=== PATIENT | male | born 1945 | race American Indian/Alaskan Native ===

== ENCOUNTER 2016-08-14 16:01 | Inpatient (IN) | payer MEDICARE ==
[2016-08-14 23:09] LABS: Anion Gap 15 mmol/L; B-Hydroxybutyrate 0.5 mg/dL (0.2-2.8); BUN/Creatinine Ratio 14.28; Blood Urea Nitrogen 20 mg/dL (9-20); Carbon Dioxide 26 mmol/L (22-30); Chloride 102.2 mmol/L (98-107); Glucose 217 mg/dL (75-100); Potassium 3.8 mmol/L (3.6-5.0); Sodium 139 mmol/L (137-145)
[2016-08-14 23:14] LABS: Basophils % (Auto) 0.7 % (0.0-1.8); Hematocrit 31.7 % (35.5-45.6); Hemoglobin 10.2 gm/dl (11.8-15.2); Mean Corpuscular HGB Conc 32 % (32-34); Mean Corpuscular Hemoglobin 29 pg (28-32); Mean Corpuscular Volume 89 fl (84-94); Platelet Count 134 K/mm3 (140-440); Red Blood Count 3.58 M/mm3 (3.65-5.03); Red Cell Distribution Width 13.1 % (13.2-15.2); White Blood Count 4.1 K/mm3 (4.5-11.0)
[2016-08-15 00:02] LABS: RBC,Urine < 1.0 /HPF (0.0-6.0); WBC,Urine < 1.0 /HPF (0.0-6.0)
[2016-08-15 00:40] LABS: Bilirubin,Urine Negative (Negative); Blood,Urine Trace (Negative); Ketones,Urine Negative (Negative); Leukocyte Esterase,Urine Negative (Negative); Nitrite,Urine Negative (Negative); Protein,Urine <30 mg dL mg/dL (Negative); Urobilinogen,Urine 0.2 mg/dL (<2.0)
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
[2016-08-15] MEDS ORDERED: ZOSYN/NS 3.375GM/50ML 50 ML IV ONE (08:02)
[2016-08-15] MEDS ORDERED: NEURONTIN PO ONE (08:03)
[2016-08-15] MEDS ORDERED: ULTRAM ONE (08:30)
[2016-08-15] MEDS ORDERED: NORVASC PO ONE (08:30)
[2016-08-15] MEDS ORDERED: CATAPRES ONE (08:31)
[2016-08-15] MEDS ORDERED: NORVASC ONE (08:31)
--- NOTE | 2016-08-15 08:46 | XRay Report ---
AP chest History: Hypertension. Findings: Heart size is upper limits of normal. Normal pulmonary vascularity. The lungs are clear. Chronic left pleural thickening is unchanged since 02/29/16. No evidence for infiltrate or pneumothorax. Impression: No acute cardiopulmonary process.
[2016-08-15] MEDS ORDERED: VANCOMYCIN PHARMACY TO DOSE IV SCH (09:00)
[2016-08-15] MEDS ORDERED: ULTRAM PO ONE (09:05)
--- NOTE | 2016-08-15 09:25 | XRay Report ---
RIGHT FOOT, 2 VIEWS: HISTORY: Pain, osteomyelitis. FINDINGS: Compared to the exam dated 06/13/16. There is [id number] diffuse soft tissue edema/swelling. No obvious soft tissue gas. Previous osteolysis of the distal tip of the great toe and most of the fourth toe are noted and not significantly changed. No evidence for fracture, periostitis or bony destruction. Plantar spur is noted. IMPRESSION: Diffuse soft tissue swelling consistent with a cellulitis. No convincing findings of acute osteomyelitis. No appreciable change since 06/13/16.
[2016-08-15] MEDS ORDERED: VANCOMYCIN VIAL 2,000 MG in NACL 0.9% 500 ML 500 ML IV ONE (10:00)
[2016-08-15] MEDS ORDERED: CATAPRES PO ONE (10:07)
[2016-08-15] MEDS ORDERED: TYLENOL PO PRN (11:01)
[2016-08-15] MEDS ORDERED: ZOFRAN IV PRN (11:01)
[2016-08-15] MEDS ORDERED: MILK OF MAGNESIA PO PRN (11:01)
[2016-08-15] MEDS ORDERED: DULCOLAX PR PRN (11:01)
[2016-08-15] MEDS ORDERED: VANCOMYCIN/NS 1 GM/250 ML 250 ML IV ONE (11:06)
--- NOTE | 2016-08-15 11:09 | History and Physical Report ---
History of Present Illness Date of examination: 08/15/16 History of present illness: 70-year-old male with a history of diabetes and hypertension presents to the hospital complaining of right foot infection and drainage. Patient state that his foot has been like this for a couple of days. Patient stated that he initially presented to the emergency room with a blister on his foot but it continued to get worse so he returned. He admits to extreme pain of the right foot drainage. He denies any fever or chills. He also denies any nausea vomiting. Patient has had surgery where he had the second right toe removed in [place]. Past History Past Medical History: diabetes, hypertension Medications and Allergies Allergies Allergy/AdvReac Type Severity Reaction Status Date / Time No Known Allergies Allergy Verified 06/28/16 15:48 Home Medications Medication Instructions Recorded Confirmed Last Taken Type Tramadol HCl [Ultram ER] 100 mg PO QID PRN 06/01/13 08/15/16 1 Day Ago History 100 Travoprost [Travatan Z] 1 drop OP BID 11/05/15 08/15/16 08/14/16 History Insulin Lispro Prot/Lispro 15 - 18 units SC BID #1 bottle 11/11/15 08/15/16 1 Day Ago Rx [HumaLOG Mix 75/25 Vial] 15 Carvedilol [Coreg] 25 mg PO BID #60 tablet 03/04/16 08/15/16 08/14/16 Rx Gabapentin [Neurontin] 300 mg PO QDAY #30 capsule 03/04/16 08/15/16 Unknown Rx Rivaroxaban [Xarelto] 15 mg PO QDAY #30 tablet 03/04/16 08/15/16 08/14/16 Rx Simvastatin [Zocor TAB] 20 mg PO QHS #30 tablet 03/04/16 08/15/16 Unknown Rx Tamsulosin [Flomax] 0.4 mg PO QHS #30 03/04/16 08/15/16 1 Day Ago Rx 0.4 amLODIPine [Norvasc] 5 mg PO DAILY #30 tab 03/04/16 08/15/16 Unknown Rx Active Meds: Active Medications Vancomycin HCl 2,000 mg/ (Sodium Chloride) 500 mls @ 250 mls/hr IV ONCE.ED ONE Stop: 08/15/16 11:59 Vancomycin HCl (Vancomycin Pharmacy To Dose) 1 each IV PKCONSULT MISTI PRN Reason: Protocol Review of Systems Integumentary: redness, foot/leg ulcers Exam - Constitutional Vitals: Temp Pulse Resp BP Pulse Ox 97.8 F 58 L 14 198/88 96 08/15/16 07:00 08/15/16 10:00 08/15/16 10:00 08/15/16 10:00 08/15/16 10:00 General appearance: Present: mild distress - EENT Eyes: Present: PERRL, EOM intact ENT: hearing intact, clear oral mucosa - Neck Neck: Present: supple, normal ROM - Respiratory Respiratory effort: normal Respiratory: bilateral: CTA - Cardiovascular Rhythm: regular Heart Sounds: Present: S1 & S2 - Abdominal General gastrointestinal: Present: soft, non-tender, non-distended, normal bowel sounds - Integumentary Integumentary: Present: erythema - Musculoskeletal Musculoskeletal: strength equal bilaterally, other (right foot with swelling erythema and drainage) - Psychiatric Psychiatric: appropriate mood/affect, intact judgment & insight - Neurologic Neurologic: CNII-XII intact, moves all extremities Results - Labs CBC & Chem 7: 08/14/16 22:37 08/14/16 22:37 Labs: Laboratory Last Values WBC 4.1 K/mm3 (4.5-11.0) L 08/14/16 22:37 RBC 3.58 M/mm3 (3.65-5.03) L 08/14/16 22:37 Hgb 10.2 gm/dl (11.8-15.2) L 08/14/16 22:37 Hct 31.7 % (35.5-45.6) L 08/14/16 22:37 MCV 89 fl (84-94) 08/14/16 22:37 MCH 29 pg (28-32) 08/14/16 22:37 MCHC 32 % (32-34) 08/14/16 22:37 RDW 13.1 % (13.2-15.2) L 08/14/16 22:37 Plt Count 134 K/mm3 (140-440) L 08/14/16 22:37 Lymph % (Auto) 33.2 % (13.4-35.0) 08/14/16 22:37 [place] % (Auto) 11.4 % (0.0-7.3) H 08/14/16 22:37 Eos % (Auto) 2.0 % (0.0-4.3) 08/14/16 22:37 Baso % (Auto) 0.7 % (0.0-1.8) 08/14/16 22:37 Lymph # 1.3 K/mm3 (1.2-5.4) 08/14/16 22:37 [place] # 0.5 K/mm3 (0.0-0.8) 08/14/16 22:37 Eos # 0.1 K/mm3 (0.0-0.4) 08/14/16 22:37 Baso # 0.0 K/mm3 (0.0-0.1) 08/14/16 22:37 Seg Neutrophils % 52.7 % (40.0-70.0) 08/14/16 22:37 Seg Neutrophils # 2.1 K/mm3 (1.8-7.7) 08/14/16 22:37 ESR 23 mm/Hr (0-20) 08/15/16 08:08 VBG pH 7.332 (7.320-7.420) 08/14/16 22:37 Carbon Dioxide 26 mmol/L (22-30) 08/14/16 22:37 BUN 20 mg/dL (9-20) 08/14/16 22:37 Creatinine 1.4 mg/dL (0.8-1.5) 08/14/16 22:37 Estimated GFR > 60 ml/min 08/14/16 22:37 BUN/Creatinine Ratio 14.28 % 08/14/16 22:37 Glucose 217 mg/dL (75-100) H 08/14/16 22:37 POC Glucose 183 (70-105) H 08/15/16 10:36 Lactic Acid 0.9 mmol/L (0.7-2.0) 08/15/16 08:08 Calcium 9.0 mg/dL (8.4-10.2) 08/14/16 22:37 C-Reactive Protein 0.30 mg/dL (0.00-1.30) 08/15/16 08:08 Urine Color Yellow (Yellow) 08/14/16 22:45 Urine Turbidity Clear (Clear) 08/14/16 22:45 Urine pH 6.0 (5.0-7.0) 08/14/16 22:45 Ur Specific [place] 1.025 (1.003-1.030) 08/14/16 22:45 Urine Protein <30 mg dl mg/dL (Negative) 08/14/16 22:45 Urine Glucose (UA) Trace mg/dL (Negative) 08/14/16 22:45 Urine Ketones Negative mg/dL (Negative) 08/14/16 22:45 Urine Blood Trace (Negative) 08/14/16 22:45 Urine Nitrite Negative (Negative) 08/14/16 22:45 Ur Reducing Substances Not Reportable 08/14/16 22:45 Urine Bilirubin Negative (Negative) 08/14/16 22:45 Urine Ictotest Not Reportable 08/14/16 22:45 Urine Urobilinogen 0.2 mg/dL (<2.0) 08/14/16 22:45 Ur Leukocyte Esterase Negative (Negative) 08/14/16 22:45 Urine WBC (Auto) < 1.0 /HPF (0.0-6.0) 08/14/16 22:45 Urine RBC (Auto) < 1.0 /HPF (0.0-6.0) 08/14/16 22:45 U Epithel Cells (Auto) < 1.0 /HPF (0-13.0) 08/14/16:45 Ketones 0.5 mg/dL (0.2-2.8) 08/14/16 22:37 Assessment and Plan - Patient Problems (1) Diabetic infection of right foot Current Visit: No Status: Acute Plan to address problem: Patient presents with diabetic foot ulcer for couple of days. He will be started on IV Zosyn and IV vancomycin. We'll follow blood cultures and wound cultures. We'll also get wound nurse to follow. We'll also get vascular surgery involvement (2) Hypertension Current Visit: No Status: Chronic Qualifiers: Hypertension type: essential hypertension Qualified Code(s): I10 - Essential (primary) hypertension Plan to address problem: We will add clonidine to help control blood pressure.
[2016-08-15] MEDS ORDERED: TRAMADOL HCL 100 MG PO PRN (11:14)
[2016-08-15] MEDS ORDERED: [UNRECOGNIZED DRUG - OTHER] SC SCH (11:15)
[2016-08-15] MEDS ORDERED: INSULIN LISPRO PROTAMINE SC SCH (11:15)
[2016-08-15] MEDS ORDERED: TRAVOPROST OP SCH (11:15)
[2016-08-15] MEDS: ZOSYN/NS 3.375GM/50ML 50 ML IV SCH ×2 (11:46→18:30)
[2016-08-15] MEDS: NORVASC PO SCH (11:46)
[2016-08-15] MEDS: NEURONTIN PO SCH (11:48)
[2016-08-15] MEDS ORDERED: XARELTO PO SCH ×2 (12:00→15:00)
[2016-08-15] MEDS: NOVOLOG SUB-Q SCH ×4 (12:04→22:50)
--- NOTE | 2016-08-15 12:05 | Admit Criteria Form ---
Admission Criteria Documentation: CELLULITIS Clinical Indications for Admission to Inpatient Care (Place 'X' for any and all applicable criteria): Admission is indicated for ANY ONE of the following(1)(2)(3)(4)(5): [X]I. Limb-threatening infection [X]II. High-risk comorbid condition as indicated by ANY ONE of the following: [X]a) Uncontrolled diabetes (eg, HbA1c greater than 10% (0.1)) [ ]b) Cirrhosis [ ]c) Neutropenia [ ]d) Asplenia [ ]e) Immunosuppression [ ]f) Symptomatic heart failure [ ]III. Failure of outpatient therapy as indicated by ALL of the following: [ ]a) Progression or no improvement after adequate trial (minimum of 48 hours, with longer period for stable lower extremity infection) [ ]b) Adequate antibiotic regimen as indicated by use of ANY ONE of the following: [ ]i) First-generation cephalosporin (e.g., cephalexin) [ ]ii) Antistaphylococcal penicillin (e.g., dicloxacillin) [ ]iii) Penicillin-allergic patient regimen (clindamycin, extended-spectrum fluoroquinolone, or doxycycline) [ ]iv) Resistant organism (eg, methicillin-resistant Staphylococcus aureus) regimen (6) [ ]c) Outpatient intravenous therapy regimen is not appropriate due to ANY ONE of the following. (7)(8)(9)(10): [ ]i) It was tried and was not successful (eg, progression of infection). [ ]ii) It is not available or cannot be arranged in a clinically appropriate time frame (e.g., the next day). [ ]iii) Clinical presentation (eg, acuity of infection, rapidity of progression, confirmed or suspected bacteremia) is judged to require ALL of the following: [ ]1) Immediate initiation of intravenous therapy ( eg, cannot wait for next day) [ ]2) Intensity of patient monitoring and observation (eg, vital sign measurement, checks for infection progression) that cannot be provided at other than inpatient level of care [ ]IV. Mental status changes [ ]V. Bacteremia [ ]. Hemodynamic instability [ ]VII. Suspected necrotizing soft tissue infection (e.g., gas in tissue)(11)( 12) [ ]VIII. Orbital infection (13)(14) [X]IX. Associated surgical procedure (e.g., abscess drainage, debridement) not amenable to outpatient, emergency department, or observation care [ ]X. Cutaneous gangrene [ ]XI. High fever (temperature greater than 39.5 degrees C (103.1 degrees F) (oral)) not responsive to outpatient, emergency department, or observation care therapy [ ]XIII. Inpatient admission required rather than observation care (Also use Cellulitis: Observation Care as appropriate) because of ANY ONE of the following : [ ]a) Periorbital or perineal infection that is severe or worsening [ ]b) Severe pain requiring acute inpatient management [ ]c) IV fluid to replace significant ongoing (e.g., for over 24 hours) losses (greater than 3L/m2 per day) [ ]d) Compartment syndrome monitoring (17) [ ]e) Strict or protective (eg, laminar flow) isolation [ ]f) Urgent debridement or skin grafting [ ]g) Bone or joint debridement [ ]h) Immediate inpatient surgery [ ]i) Other condition, treatment or monitoring requiring inpatient admission Extended stay beyond goal length of stay may be needed for (1)(18): [ ]a) Necrotizing soft tissue infection or fasciitis [ ]b) Gram-negative infection [ ]c) Methicillin-resistant Staphylococcal aureus (MRSA) infection [ ]d) Peripheral venous insufficiency with cellulitis [ ]e) Extensive edema [ ]f) Sepsis or continued Hemodynamic instability [ ]g) Continued high fever or mental status change [ ]h) Bacteremia [ ]i) Active serious comorbid conditions ( eg, heart failure, renal insufficiency) The original [facility] content created by [facility] has been revised. The portions of the content which have been revised are identified through the use of italic text or in bold, and [facility] has neither reviewed nor approved the modified material. All other unmodified content is copyright [facility] Please see references footnoted in the original [facility] [employer] edition 2016 Admission Criteria Met: Yes
[2016-08-15] MEDS: COREG PO SCH ×2 (12:45→22:55)
[2016-08-15] MEDS: COLACE PO SCH ×2 (12:45→22:56)
[2016-08-15] MEDS: LOVENOX SUB-Q SCH (13:30)
[2016-08-15] MEDS: PERCOCET 5/325 PO PRN (14:30)
[2016-08-15] MEDS: BABY ASPIRIN PO SCH (16:16)
--- NOTE | 2016-08-15 17:31 | Consultation ---
History of Present Illness - Reason for Consult Consult date: 08/15/16 Bilateral Foot Wounds Requesting physician: JUNIOR SCOTT - History of Present Illness This patient is a 70-year-old male of [place] descent who presents to the emergency room at [facility] with a right lower extremity foot wound infection. The wound developed initially in 2010 in [place]. He states he went to a reputable hospital. One of his toes auto amputated. He had a severe infection which was partially drained by himself and subsequently surgically debrided. He's had a persistent wound to the right great toe. His nail became loose, and he removed it himself. He's been evaluated in this emergency room previously, and was admitted in May 2016. He has been evaluated by both orthopedics and podiatry. He was sent to the wound care center at [facility] as an outpatient. His wound apparently deteriorated, and he was referred back to the emergency room. A vascular surgery consult was requested to further evaluate. Past History Past Medical History: diabetes, DVT (left lower extremity), hypertension, hyperlipidemia Past Surgical History: Other (Multiple foot surgeries including a wide I&D and fourth toe amputation) Social history: lives with family. denies: smoking, alcohol abuse, IV drug use Family history: diabetes Medications and Allergies Allergies Allergy/AdvReac Type Severity Reaction Status Date / Time No Known Allergies Allergy Verified 06/28/16 15:48 Home Medications Medication Instructions Recorded Confirmed Last Taken Type Tramadol HCl [Ultram ER] 100 mg PO QID PRN 06/01/13 08/15/16 1 Day Ago History 100 Travoprost [Travatan Z] 1 drop OP BID 11/05/15 08/15/16 08/14/16 History Insulin Lispro Prot/Lispro 15 - 18 units SC BID #1 bottle 11/11/15 08/15/16 1 Day Ago Rx [HumaLOG Mix 75/25 Vial] 15 Carvedilol [Coreg] 25 mg PO BID #60 tablet 03/04/16 08/15/16 08/14/16 Rx Gabapentin [Neurontin] 300 mg PO QDAY #30 capsule 03/04/16 08/15/16 Unknown Rx Rivaroxaban [Xarelto] 15 mg PO QDAY #30 tablet 03/04/16 08/15/16 08/14/16 Rx Simvastatin [Zocor TAB] 20 mg PO QHS #30 tablet 03/04/16 08/15/16 Unknown Rx Tamsulosin [Flomax] 0.4 mg PO QHS #30 03/04/16 08/15/16 1 Day Ago Rx 0.4 amLODIPine [Norvasc] 5 mg PO DAILY #30 tab 03/04/16 08/15/16 Unknown Rx Active Meds: Active Medications Acetaminophen (Tylenol) 650 mg PO Q4H PRN PRN Reason: Pain MILD(1-3)/Fever >100.5/SPAULDING Amlodipine Besylate (Norvasc) 5 mg PO DAILY [facility] Last Admin: 08/15/16 11:46 Dose: Not Given Aspirin (Baby Aspirin) 162 mg PO QDAY [facility] Last Admin: 08/15/16 16:16 Dose: 162 mg Bisacodyl (Dulcolax) 10 mg AR QDAY PRN PRN Reason: Constipation unrelieved by MOM Carvedilol (Coreg) 25 mg PO BID [facility] Last Admin: 08/15/16 12:45 Dose: 25 mg Docusate Sodium (Colace) 100 mg PO BID [facility] Last Admin: 08/15/16 12:45 Dose: 100 mg Enoxaparin Sodium (Lovenox) 30 mg SUB-Q QDAY [facility] Last Admin: 08/15/16 13:30 Dose: 30 mg Gabapentin (Neurontin) 300 mg PO QDAY [facility] Last Admin: 08/15/16 11:48 Dose: Not Given Sodium Chloride (Nacl 0.9% 1000 Ml) 1,000 mls @ 100 mls/hr IV DIRECT [facility] Piperacillin Sod/Tazobactam Sod (Zosyn/Ns 3.375gm/50ml) 50 mls @ 100 mls/hr IV Q6HR [facility] Last Admin: 08/15/16 11:46 Dose: Not Given Vancomycin HCl 1,500 mg/ (Sodium Chloride) 500 mls @ 333.333 mls/hr IV Q24HR [facility] Insulin Aspart (Novolog) 0 units SUB-Q ACHS [facility] PRN Reason: Protocol Last Admin: 08/15/16 16:54 Dose: 3 units Latanoprost (Xalatan 0.005%) 1 drops OU QHS [facility] Magnesium Hydroxide (Milk Of Magnesia) 30 ml PO Q4H PRN PRN Reason: Constipation Ondansetron HCl (Zofran) 4 mg IV Q8H PRN PRN Reason: N/V unrelieved by Reglan Oxycodone/Acetaminophen (Percocet 5/325) 1 tab PO Q6H PRN PRN Reason: Pain, Moderate (4-6) Last Admin: 08/15/16 14:30 Dose: 1 tab Simvastatin (Zocor) 20 mg PO QHS [facility] Tamsulosin HCl (Flomax) 0.4 mg PO QHS [facility] Tramadol HCl (Ultram) 100 mg PO QID PRN PRN Reason: Pain, Moderate (4-6) Vancomycin HCl (Vancomycin Pharmacy To Dose) 1 each IV PKCONSULT [facility] PRN Reason: Protocol Review of Systems All systems: negative Exam - Constitutional Vitals: Temp Pulse Resp BP Pulse Ox 97.6 F 64 18 178/85 100 08/15/16 14:23 08/15/16 14:23 08/15/16 14:23 08/15/16 14:23 08/15/16 14:23 General appearance: Present: no acute distress - EENT Eyes: Present: EOM intact ENT: hearing intact - Neck Neck: Present: supple - Respiratory Respiratory effort: normal - Extremities Extremities: pulses intact (palpable dorsalis pedis pulse bilaterally), normal temperature Extremity abnormal: edema (right lower extremity), ulceration (has a small approximate 3 mm dry ulceration to the distal tip of his left great toe. His right foot has a well-healed scar from his previous surgery the dorsum of his foot. His right first toe has a distal dry ulceration. He has a nail remnant which is enclosed within the ulcer. There is no active drainage appreciated. There is no overt erythema.) - Psychiatric Psychiatric: appropriate mood/affect, intact judgment & insight, cooperative - Neurologic Neurologic: no focal deficits Results - Labs CBC & Chem 7: 08/14/16 22:37 08/14/16 22:37 Labs: Abnormal lab results 08/15/16 Range/Units 16:50 POC Glucose 245 H (70-105) Assessment and Plan This patient is a very pleasant man who is appreciative of any help he receives. He presented to the emergency room with a chronic ulceration to his distal right great toe. He has a smaller ulceration on the left great toe. He is being admitted and treated for an underlying cellulitis. A Vascular surgery consult has been requested to further evaluate. An arterial duplex with ABIs were ordered. This revealed multiphasic waveforms proximally, but monophasic flows through his anterior tibial artery. The location of his ulcerations, this could be a potential reason his wounds have failed to improve. Recommend angiography and possible intervention. The risks benefits and alternatives have been discussed with the patient in detail. He states understanding and has agreed to proceed. He is on Xarelto as an outpatient due to a previous DVT. Would hold the Xarelta for now, and resume 48 hours after the procedure. Would continue to hydrate the patient in preparation for the procedure. The patient has moderate amount of swelling to his right lower extremity. He reportedly had a previous left lower extremity DVT. We will check a venous duplex. 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
[2016-08-15] MEDS: FLOMAX PO SCH (22:56)
[2016-08-15] MEDS: ZOCOR PO SCH (22:56)
[2016-08-16] MEDS: ZOSYN/NS 3.375GM/50ML 50 ML IV SCH ×5 (00:04→23:52)
[2016-08-16] MEDS: XALATAN 0.005% OU SCH ×2 (01:07→23:48)
[2016-08-16] MEDS: NACL 0.9% 1000 ML 1,000 ML IV SCH ×3 (04:01→22:05)
[2016-08-16 07:01] LABS: Basophils % (Auto) 0.8 % (0.0-1.8); Eosinophils % (Auto) 2.5 % (0.0-4.3); Hematocrit 33.4 % (35.5-45.6); Hemoglobin 10.6 gm/dl (11.8-15.2); Mean Corpuscular HGB Conc 32 % (32-34); Mean Corpuscular Hemoglobin 28 pg (28-32); Mean Corpuscular Volume 88 fl (84-94); Platelet Count 143 K/mm3 (140-440); Red Blood Count 3.81 M/mm3 (3.65-5.03); Red Cell Distribution Width 13.2 % (13.2-15.2); White Blood Count 3.8 K/mm3 (4.5-11.0)
[2016-08-16 07:05] LABS: Alanine Aminotransferase 9 units/L (7-56); Albumin 3.4 g/dL (3.9-5); Albumin/Globulin Ratio 1.2 %; Alkaline Phosphatase 42 units/L (35-129); Anion Gap 15 mmol/L; BUN/Creatinine Ratio 11.53; Bilirubin,Total 0.3 mg/dL (0.1-1.2); Blood Urea Nitrogen 15 mg/dL (9-20); Calcium 8.5 mg/dL (8.4-10.2); Carbon Dioxide 24 mmol/L (22-30); Chloride 107.4 mmol/L (98-107); Glucose 132 mg/dL (75-100); Potassium 3.5 mmol/L (3.6-5.0); Sodium 143 mmol/L (137-145); Total Protein 6.3 g/dL (6.3-8.2)
[2016-08-16] MEDS: NOVOLOG SUB-Q SCH ×4 (07:45→16:23)
--- NOTE | 2016-08-16 09:28 | Vascular Lab Report ---
LOWER EXTREMITY ARTERIAL DUPLEX: REASON FOR EXAM: Chronic ulcerations of the bilateral tip of the first digit for multiple months with autoamputation. COMMENTS ON THE RIGHT: Biphasic and triphasic waveforms are seen proximally. Triphasic waveforms are seen distally in the posterior tibial artery with monophasic waveforms in the anterior tibial and dorsalis pedis artery with decreased velocities in the dorsalis pedis and anterior tibial artery. A significant decline in velocities noted in the anterior tibial artery. No focal occlusion is identified. Findings are consistent with abnormal flow into the anterior tibial artery. Findings are compatible with possible ability to heal distal wounds. COMMENTS ON THE LEFT: Triphasic waveforms are seen proximally. Triphasic waveforms are seen distally in the posterior tibial artery with monophasic waveforms in the anterior tibial and dorsalis pedis artery with decreased velocities in the dorsalis pedis and anterior tibial artery. A significant decline in velocity is noted in the anterior tibial artery. No focal occlusion is identified. Findings are consistent with abnormal flow into the anterior tibial artery. Findings are compatible with possible ability to heal distal wounds. IMPRESSION: RIGHT: Decreased flow to the anterior tibial artery. LEFT:Decreased flow to the anterior tibial artery.
--- NOTE | 2016-08-16 09:32 | Vascular Lab Report ---
LOWER EXTREMITY ARTERIAL PHYSIOLOGIC STUDY: REASON FOR EXAM: Ulceration of the bilateral first digits. COMMENTS ON THE RIGHT: Ankle brachial index is 1.08. This value is possibly abnormally elevated from calcific disease. Toe brachial index is noncompressible. Waveform of the first digit is decreased in amplitude but otherwise relatively preserved. Pulse volume recording at the level of the ankle is relatively preserved with loss of the dicrotic notch. Exercise testing was not done. COMMENTS ON THE LEFT: Ankle brachial index is noncompressible. This value is abnormal due to calcific disease. Toe brachial index is noncompressible. Waveform of the first digit is relatively preserved. Pulse volume recording at the level of the ankle is relatively preserved with loss of the dicrotic notch. Exercise testing was not done. IMPRESSION: RIGHT: Calcific disease preventing accurate NAVID with relatively preserved waveforms. LEFT:Calcific disease resulting in noncompressible NAVID with relatively preserved waveforms.
--- NOTE | 2016-08-16 10:06 | Progress Note ---
Assessment and Plan - Patient Problems (1) Diabetic infection of right foot Current Visit: Yes Status: Acute Plan to address problem: Patient presents with diabetic foot ulcer for couple of days. He will be started on IV Zosyn and IV vancomycin. We'll follow blood cultures and wound cultures. We'll also get wound nurse to follow. We'll also get vascular surgery involvement. Vascular surgery evaluated the patient and recommended doing a angiography with possible intervention. (2) Hypertension Current Visit: No Status: Chronic Qualifiers: Hypertension type: essential hypertension Qualified Code(s): I10 - Essential (primary) hypertension Plan to address problem: Patient currently on carvedilol and amlodipine. We will add clonidine 0.2 twice a day for adequate blood pressure control History Interval history: Patient lying in bed state that he does have some pain in his right foot Hospitalist Physical - Constitutional Vitals: Temp Pulse Resp BP Pulse Ox 97.8 F 66 20 178/86 99 08/16/16 08:00 08/16/16 08:00 08/16/16 08:00 08/16/16 08:00 08/16/16 08:00 General appearance: Present: no acute distress - EENT Eyes: Present: PERRL, EOM intact ENT: hearing intact, clear oral mucosa - Neck Neck: Present: supple, normal ROM - Respiratory Respiratory effort: normal Respiratory: bilateral: CTA - Cardiovascular Rhythm: regular Heart Sounds: Present: S1 & S2 - Abdominal General gastrointestinal: soft, non-tender, non-distended, normal bowel sounds - Psychiatric Psychiatric: appropriate mood/affect, intact judgment & insight - Neurologic Neurologic: CNII-XII intact, moves all extremities Results - Labs CBC & Chem 7: 08/16/16 06:14 08/16/16 06:14 Labs: Laboratory Last Values WBC 3.8 K/mm3 (4.5-11.0) L 08/16/16 06:14 RBC 3.81 M/mm3 (3.65-5.03) 08/16/16 06:14 Hgb 10.6 gm/dl (11.8-15.2) L 08/16/16 06:14 Hct 33.4 % (35.5-45.6) L 08/16/16 06:14 MCV 88 fl (84-94) 08/16/16 06:14 MCH 28 pg (28-32) 08/16/16 06:14 MCHC 32 % (32-34) 08/16/16 06:14 RDW 13.2 % (13.2-15.2) 08/16/16 06:14 Plt Count 143 K/mm3 (140-440) 08/16/16 06:14 Lymph % (Auto) 27.6 % (13.4-35.0) 08/16/16 06:14 [place] % (Auto) 10.3 % (0.0-7.3) H 08/16/16 06:14 Eos % (Auto) 2.5 % (0.0-4.3) 08/16/16 06:14 Baso % (Auto) 0.8 % (0.0-1.8) 08/16/16 06:14 Lymph # 1.1 K/mm3 (1.2-5.4) L 08/16/16 06:14 [place] # 0.4 K/mm3 (0.0-0.8) 08/16/16 06:14 Eos # 0.1 K/mm3 (0.0-0.4) 08/16/16 06:14 Baso # 0.0 K/mm3 (0.0-0.1) 08/16/16 06:14 Seg Neutrophils % 58.8 % (40.0-70.0) 08/16/16 06:14 Seg Neutrophils # 2.3 K/mm3 (1.8-7.7) 08/16/16 06:14 ESR 23 mm/Hr (0-20) 08/15/16 08:08 VBG pH 7.332 (7.320-7.420) 08/14/16 22:37 Sodium 143 mmol/L (137-145) 08/16/16 06:14 Potassium 3.5 mmol/L (3.6-5.0) L 08/16/16 06:14 Chloride 107.4 mmol/L (98-107) H 08/16/16 06:14 Carbon Dioxide 24 mmol/L (22-30) 08/16/16 06:14 Anion Gap 15 mmol/L 08/16/16 06:14 BUN 15 mg/dL (9-20) 08/16/16 06:14 Creatinine 1.3 mg/dL (0.8-1.5) 08/16/16 06:14 Estimated GFR > 60 ml/min 08/16/16 06:14 BUN/Creatinine Ratio 11.53 % 08/16/16 06:14 Glucose 132 mg/dL (75-100) H 08/16/16 06:14 POC Glucose 126 (70-105) H 08/16/16 06:38 Lactic Acid 0.9 mmol/L (0.7-2.0) 08/15/16 08:08 Calcium 8.5 mg/dL (8.4-10.2) 08/16/16 06:14 Total Bilirubin 0.3 mg/dL (0.1-1.2) 08/16/16 06:14 AST 13 units/L (5-40) 08/16/16 06:14 ALT 9 units/L (7-56) 08/16/16 06:14 Alkaline Phosphatase 42 units/L (35-129) 08/16/16 06:14 C-Reactive Protein 0.30 mg/dL (0.00-1.30) 08/15/16 08:08 Total Protein 6.3 g/dL (6.3-8.2) 08/16/16 06:14 Albumin 3.4 g/dL (3.9-5) L 08/16/16 06:14 Albumin/Globulin Ratio 1.2 % 08/16/16 06:14 Urine Color Yellow (Yellow) 08/14/16 22:45 Urine Turbidity Clear (Clear) 08/14/16 22:45 Urine pH 6.0 (5.0-7.0) 08/14/16 22:45 Ur Specific [place] 1.025 (1.003-1.030) 08/14/16 22:45 Urine Protein <30 mg dl mg/dL (Negative) 08/14/16 22:45 Urine Glucose (UA) Trace mg/dL (Negative) 08/14/16 22:45 Urine Ketones Negative mg/dL (Negative) 08/14/16 22:45 Urine Blood Trace (Negative) 08/14/16 22:45 Urine Nitrite Negative (Negative) 08/14/16 22:45 Ur Reducing Substances Not Reportable 08/14/16 22:45 Urine Bilirubin Negative (Negative) 08/14/16 22:45 Urine Ictotest Not Reportable 08/14/16 22:45 Urine Urobilinogen 0.2 mg/dL (<2.0) 08/14/16 22:45 Ur Leukocyte Esterase Negative (Negative) 08/14/16 22:45 Urine WBC (Auto) < 1.0 /HPF (0.0-6.0) 08/14/16 22:45 Urine RBC (Auto) < 1.0 /HPF (0.0-6.0) 08/14/16 22:45 U Epithel Cells (Auto) < 1.0 /HPF (0-13.0) 08/14/16 22:45 Ketones 0.5 mg/dL (0.2-2.8) 08/14/16 22:37
[2016-08-16] MEDS: NEURONTIN PO SCH (11:10)
[2016-08-16] MEDS: COREG PO SCH ×2 (11:10→22:05)
[2016-08-16] MEDS: BABY ASPIRIN PO SCH (11:11)
[2016-08-16] MEDS: COLACE PO SCH ×2 (11:11→22:08)
[2016-08-16] MEDS: NORVASC PO SCH (11:11)
[2016-08-16] MEDS: LOVENOX SUB-Q SCH (11:16)
[2016-08-16] MEDS ORDERED: HEPARIN/NS 5000 UNIT/500ML(CATH LAB) 1,000 ML IR ONE (12:07)
[2016-08-16] MEDS ORDERED: HEPARIN 10,000 UNITS/10 ML ONE (12:07)
[2016-08-16] MEDS ORDERED: NACL 0.9% 250ML 250 ML ONE (12:08)
[2016-08-16] MEDS ORDERED: ANCEF/STERILE WATER 2 GM/20 ML 20 ML IV ONE (12:08)
[2016-08-16] MEDS: VERSED ONE ×3 (12:45→13:06)
[2016-08-16] MEDS: SUBLIMAZE ONE ×5 (12:45→13:54)
[2016-08-16] MEDS: XYLOCAINE 1%/ EPI 1:100,000 INFILTRATI ONE ×2 (12:46→12:58)
[2016-08-16] MEDS ORDERED: NACL 0.9% 1000 ML 1,000 ML ONE ×2 (12:55→13:25)
[2016-08-16] MEDS ORDERED: VERSED ONE (13:05)
[2016-08-16] MEDS: VANCOMYCIN VIAL 1,500 MG in NACL 0.9% 500 ML 500 ML IV SCH (13:15)
[2016-08-16] MEDS ORDERED: TRIDIL DRIP 50MG/250ML 250 ML ONE (13:24)
[2016-08-16] MEDS ORDERED: CALAN ONE (13:25)
--- NOTE | 2016-08-16 14:26 | Operative Report ---
Operative Report Operative Report: EXAM: 1. Ultrasound-guided access of the left common femoral artery 2. Angiography of the left lower extremity 3. Selection of the abdominal aorta with angiography 4. Selection of the right external iliac artery with angiography 5. Selection of the right superficial femoral artery with angiography 6. Selection of the right popliteal artery with angiography 7. Selection of the right anterior tibial artery with angiography 8. Atherectomy of the right anterior tibial artery with a 1.25 micron CSI atherectomy device 9. Angioplasty of the right anterior tibial artery with a 3 mm angioplasty balloon 10. Angioplasty of the right anterior tibial artery with a 3.5-4 mm tapered angioplasty balloon 11. Closure of the left common femoral artery arteriotomy with a 6 Martiniquais Angio -Seal device DATE: 08/16/16 AIRPORT RAMP AGENT: DEJON JOSEPH MD INDICATION: Critical limb ischemia of the bilateral lower extremities with first digit ulcerations of both lower extremities, right side worse than left. Abnormal ultrasound of the anterior tibial artery. MEDICATIONS: Please see nursing report for full details. DEVICES: 3 mm angioplasty balloon 3.5-4 mm angioplasty balloon 1.25 micron CSI atherectomy device CONTRAST: 100 mL of nonionic contrast. PROCEDURE: The risks, benefits, and alternatives were discussed with the patient; written informed consent was obtained. The patient's groins were prepped and draped in a sterile fashion. The left common femoral artery was assessed under ultrasound was patent. Under direct ultrasound guidance, the left common femoral artery was accessed with a 21-gauge micropuncture needle. 0.018 inch wire was passed into the aorta. Needle was exchanged for transitional dilator. Wire was exchanged for 0.035 inch Hargrove wire. Transitional dilator was exchanged for 5 Martiniquais sheath. Digital subtraction angiography was performed through the sheath demonstrating an appropriate puncture, above the bifurcation below the inferior epigastric artery. The left common femoral artery, proximal superficial femoral artery, profunda femoral artery, and external iliac artery were patent. 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 This is a normal variant. Omni flush catheter was passed into the infrarenal abdominal aorta. Digital subtraction angiography was performed demonstrating normal infrarenal abdominal aorta, bilateral common iliac arteries, and bilateral external iliac arteries. Wire and catheter was then advanced into the right external iliac artery which was selected with the catheter. Digital subtraction angiography was performed demonstrating patency of the right common femoral artery, external iliac artery , proximal superficial femoral artery, and profunda femoral artery was patent. The right lateral femoral circumflex artery arose from the common femoral artery which was a normal variant. Catheter was exchanged for an angled catheter which was positioned in the proximal superficial femoral artery. Digital subtraction angiography was performed demonstrating patency of the superficial femoral artery. This was advanced further into the superficial femoral artery and digital subtraction angiography was performed demonstrating patency of the mid and distal superficial femoral artery. Catheter was then advanced into the distal superficial femoral artery and patency was demonstrated oft the popliteal artery. Catheter was positioned in the popliteal artery and digital subtraction angiography was performed demonstrating multifocal mild narrowings less than 20% of the posterior tibial artery. The tibioperoneal trunk was patent. Midportion of the peroneal artery had a focal mild narrowing. The proximal portion of the anterior tibial artery was occluded with late reconstitution of the vessel. Flow in the foot was dominated by flow from the peroneal artery into the anterior communicating artery and into the dorsalis pedis, and flow from the posterior tibial artery. After evaluating the patient's diagnostic angiogram, and knowing the long- standing nature of his 1st digit nonhealing ulcer, I determined intervention was required. The patient was heparinized. 6 Martiniquais 90 cm [place] destination was positioned in the popliteal artery. Roadmap imaging was obtained, and the vertebral catheter was then advanced to the proximal anterior tibial artery. Digital subtraction angiography was performed in the anterior tibial artery documenting the proximal occlusion and the multifocal moderate narrowings after the occlusion within the proximal portion of the vessel. Catheter and the V18 wire were used across the occlusion with a wire passing into the midportion of the anterior tibial artery. Catheter was exchanged for 0.018 inch Trailblazer which was advanced to the midportion of the anterior tibial artery. Digital subtraction angiography was performed demonstrating patency of the distal portion of the anterior tibial artery with successful crossing of the proximal occlusion. Viper wire was passed into the anterior tibial artery at the ankle. 1.25 CSI atherectomy device was advanced over the wire and used to perform atherectomy of the proximal and mid anterior tibial artery. This was done at low, medium, and high settings. 3 mm angioplasty balloon was advanced over the wire and used to perform angioplasty. This was done at low pressure for long inflation time. Digital subtraction angiography demonstrated moderate residual narrowing in the proximal anterior tibial artery, with resolution of the previously sluggish flow in this vessel. 3.5-4 mm angioplasty balloon was advanced over the wire and used to perform angioplasty at the proximal and mid anterior tibial artery. The proximal anterior tibial artery was treated with a 4 mm angioplasty balloon, and the midportion with a 3.5 mm angioplasty balloon. This was done at low pressure for long inflation time. Digital subtraction angiography demonstrated resolution of the narrowings within the anterior tibial artery which now had the most brisk flow to the foot compared to the peroneal and posterior tibial artery. After achieving this excellent result, wire was removed. 0.035 inch Hargrove wire was passed and the sheath. Introducer was advanced through the sheath. Sheath was retracted to the left external iliac artery. 0.035 inch wire was passed centrally. The introducer was removed. Sheath was removed. 6 Martiniquais Angio-Seal was successfully deployed in the left common femoral artery arteriotomy. Immediate hemostasis was achieved. Dermabond applied. Sterile dressing applied. Patient tolerated the procedure well. No immediate postprocedure complication. The right dorsalis pedis and left common femoral artery were palpable post procedurally. FINDINGS: Please see procedure note above. IMPRESSION: 1. Successful angiography of the infrarenal abdominal aorta and bilateral lower extremities. 2. Successful third order selection of the right popliteal artery 3. Successful atherectomy and angioplasty of the right anterior tibial artery with taoism of excellent flow with no residual narrowing.
--- NOTE | 2016-08-16 15:32 | Event Note ---
Date: 08/16/16 70-year-old male with critical limb ischemia of the bilateral lower extremities status post revascularization of the right lower extremity. Excellent response to atherectomy and angioplasty of the right anterior tibial artery. Continue aspirin and Xarelto. Xarelto can be started tomorrow.
[2016-08-16] MEDS: FLOMAX PO SCH (22:05)
[2016-08-16] MEDS: ZOCOR PO SCH (22:08)
[2016-08-16] MEDS: PERCOCET 5/325 PO PRN (23:46)
[2016-08-17] MEDS: ZOSYN/NS 3.375GM/50ML 50 ML IV SCH ×4 (05:22→23:37)
[2016-08-17 06:35] LABS: Basophils % (Auto) 0.8 % (0.0-1.8); Eosinophils % (Auto) 2.8 % (0.0-4.3); Hemoglobin 10.5 gm/dl (11.8-15.2); Mean Corpuscular HGB Conc 33 % (32-34); Mean Corpuscular Hemoglobin 29 pg (28-32); Mean Corpuscular Volume 88 fl (84-94); Platelet Count 142 K/mm3 (140-440); Red Blood Count 3.62 M/mm3 (3.65-5.03); Red Cell Distribution Width 13.3 % (13.2-15.2); White Blood Count 4.6 K/mm3 (4.5-11.0)
[2016-08-17 06:55] LABS: Albumin 3.3 g/dL (3.9-5); Albumin/Globulin Ratio 1.3 %; Bilirubin,Total 0.2 mg/dL (0.1-1.2); Calcium 8.4 mg/dL (8.4-10.2); Chloride 105.8 mmol/L (98-107); Potassium 3.9 mmol/L (3.6-5.0); Total Protein 5.9 g/dL (6.3-8.2)
[2016-08-17] MEDS: NOVOLOG SUB-Q SCH ×4 (08:19→23:33)
[2016-08-17] MEDS ORDERED: LOVENOX SUB-Q SCH (10:00)
[2016-08-17] MEDS: BABY ASPIRIN PO SCH (10:03)
[2016-08-17] MEDS: NEURONTIN PO SCH (10:03)
[2016-08-17] MEDS: COLACE PO SCH ×2 (10:03→22:47)
[2016-08-17] MEDS: COREG PO SCH ×2 (10:07→22:47)
[2016-08-17] MEDS: NORVASC PO SCH (10:07)
[2016-08-17] MEDS: VANCOMYCIN VIAL 1,500 MG in NACL 0.9% 500 ML 500 ML IV SCH (10:27)
[2016-08-17] MEDS: NACL 0.9% 1000 ML 1,000 ML IV SCH (12:08)
--- NOTE | 2016-08-17 12:21 | Operative Report ---
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 Patient developed deep venous thrombosis while on Xarelto anticoagulation, but was on a subtherapeutic dose of 15 mg once a day. In order to prevent future confusion and due to mild chronic renal insuffiency, recommend Eliquis 10 mg PO BID x 1 week starting tomorrow with Eliquis 5 mg PO 08/17/2016 Today patient with bedside, has no complaints. Left groin access site without hematoma, dressing clean dry and intact. No calf tenderness, denies leg pain. Recommend to start Eliquis 10 mg by mouth twice a day for 1 week starting today then 5 mg by mouth twice a day.
--- NOTE | 2016-08-17 14:11 | Progress Note ---
Assessment and Plan 1. Diabetic left foot ulcer: Wound culture has yielded no growth so far. Continue with IV Zosyn and vancomycin, local wound care. 2. Diabetes mellitus uncontrolled: On sliding scale insulin and consistent collided diet. 3. Anemia: Of chronic disease. Continue chronic disease care management and treatment H&H 4. Hypertension: Optimize with oral antihypertensives - Amlodipine and Carvedilol. Will add lisinopril 5. Peripheral arterial disease status post stent placement: Continue anticoagulation and antiplatelets therapy 6. DVT prophylaxis with Eliquis and GI with famotidine - Patient Problems (1) Atherosclerosis of [place] arteries of the extremities with ulceration Diagnosis Date: 08/17/16 Current Visit: Yes Status: Acute (2) Cellulitis of right foot Diagnosis Date: 08/17/16 Current Visit: Yes Status: Acute (3) Diabetic infection of right foot Diagnosis Date: 08/17/16 Current Visit: Yes Status: Acute (4) Hyperglycemia due to type 1 diabetes mellitus Diagnosis Date: 08/17/16 Current Visit: Yes Status: Acute (5) Accelerated hypertension Diagnosis Date: 08/17/16 Current Visit: No Status: Acute Subjective Date of service: 08/17/16 Principal diagnosis: diabetic left ulcer, hypertension, diabetes mellitus Interval history: No new complaints, no overnight events, no fever nausea vomiting. Objective - Constitutional Vitals: Vital Signs - 12hr 08/17/16 08/17/16 07:15 10:07 Temperature 97.9 F Pulse Rate [ 58 L Left Radial] Respiratory 16 Rate Blood Pressure 174/93 Blood Pressure 174/93 [Left Arm] O2 Sat by Pulse 10 L Oximetry General appearance: Present: no acute distress, well-nourished - EENT Eyes: PERRL, EOM intact ENT: hearing intact, clear oral mucosa Ears: bilateral: normal - Neck Neck: supple, normal ROM - Respiratory Respiratory effort: normal Respiratory: bilateral: CTA - Breasts Breasts: normal - Cardiovascular Rhythm: regular Heart Sounds: Present: S1 & S2. Absent: gallop, rub Extremities: pulses intact, No edema, normal color, Full ROM - Gastrointestinal General gastrointestinal: Present: soft, non-tender, non-distended, normal bowel sounds - Genitourinary Male genitourinary: normal - Integumentary Integumentary: clear, warm, dry - Musculoskeletal Musculoskeletal: other (dry wound dressing left the toe) - Neurologic Neurologic: moves all extremities - Psychiatric Psychiatric: memory intact, appropriate mood/affect, intact judgment & insight - Labs CBC & Chem 7: 08/17/16 06:00 08/17/16 06:00 Labs: Abnormal lab results 08/16/16 08/16/16 08/17/16 Range/Units 16:34 22:29 05:32 RBC (3.65-5.03) M/mm3 Hgb (11.8-15.2) gm/dl Hct (35.5-45.6) % [place] % (Auto) (0.0-7.3) % Glucose (75-100) mg/dL POC Glucose 153 H 204 H 226 H (70-105) Total Protein (6.3-8.2) g/dL Albumin (3.9-5) g/dL 08/17/16 08/17/16 08/17/16 Range/Units 06:00 06:00 12:19 RBC 3.62 L (3.65-5.03) M/mm3 Hgb 10.5 L (11.8-15.2) gm/dl Hct 32.0 L (35.5-45.6) % [place] % (Auto) 11.8 H (0.0-7.3) % Glucose 261 H (75-100) mg/dL POC Glucose 137 H (70-105) Total Protein 5.9 L (6.3-8.2) g/dL Albumin 3.3 L (3.9-5) g/dL
[2016-08-17] MEDS: PEPCID IV SCH (15:55)
[2016-08-17] MEDS: ULTRAM PO PRN (22:45)
[2016-08-17] MEDS: ELIQUIS PO SCH (22:46)
[2016-08-17] MEDS: FLOMAX PO SCH (22:46)
[2016-08-17] MEDS: ZOCOR PO SCH (22:47)
[2016-08-17] MEDS: XALATAN 0.005% OU SCH (23:34)
[2016-08-18] MEDS: ZOSYN/NS 3.375GM/50ML 50 ML IV SCH ×3 (05:26→17:44)
[2016-08-18] MEDS: NOVOLOG SUB-Q SCH ×4 (07:57→22:59)
[2016-08-18] MEDS: PEPCID IV SCH (09:39)
[2016-08-18] MEDS: VANCOMYCIN VIAL 1,500 MG in NACL 0.9% 500 ML 500 ML IV SCH (09:39)
[2016-08-18] MEDS: COREG PO SCH ×2 (09:40→21:30)
[2016-08-18] MEDS: ELIQUIS PO SCH ×2 (09:40→21:30)
[2016-08-18] MEDS: NORVASC PO SCH (09:41)
[2016-08-18] MEDS: NEURONTIN PO SCH (09:41)
[2016-08-18] MEDS: COLACE PO SCH ×2 (09:41→21:30)
[2016-08-18] MEDS: BABY ASPIRIN PO SCH (09:41)
--- NOTE | 2016-08-18 11:21 | Progress Note ---
Subjective Principal diagnosis: diabetic left ulcer, hypertension, diabetes mellitus Interval history: Patient seen at bedside. No new complaints. He was started on Eliquis yesterday. Continue with anticoagulation, follow-up with vascular after discharge. Objective - Constitutional Vitals: Vital Signs - 12hr 08/18/16 08/18/16 08/18/16 00:00 04:35 07:30 Temperature 97.9 F 98.2 F 98.4 F Pulse Rate Pulse Rate [ 62 73 63 Left Radial] Respiratory 20 20 16 Rate Blood Pressure Blood Pressure 208/94 161/76 173/84 [Left Arm] O2 Sat by Pulse 99 97 100 Oximetry 08/18/16 08/18/16 08/18/16 08:02 09:40 09:41 Temperature Pulse Rate 63 63 Pulse Rate [ Left Radial] Respiratory 20 Rate Blood Pressure 173/84 173/84 Blood Pressure [Left Arm] O2 Sat by Pulse Oximetry - Labs CBC & Chem 7: 08/17/16 06:00 08/17/16 06:00 Labs: Abnormal lab results 08/17/16 08/17/16 08/17/16 Range/Units 12:19 15:54 21:33 POC Glucose 137 H 241 H 217 H (70-105) 08/18/16 Range/Units 06:33 POC Glucose 243 H (70-105)
--- NOTE | 2016-08-18 19:42 | Progress Note ---
Assessment and Plan 1. Diabetic left foot ulcer: Wound culture has yielded no growth so far. Continue with IV Zosyn and vancomycin, local wound care. 2. Diabetes mellitus uncontrolled: On sliding scale insulin and consistent collided diet. 3. Anemia: Of chronic disease. Continue chronic disease care management and treatment H&H 4. Hypertension: Optimize with oral antihypertensives - Amlodipine and Carvedilol. Will add lisinopril 5. Peripheral arterial disease status post stent placement: Continue anticoagulation and antiplatelets therapy 6. DVT: Left subacute and right chronic DVT. Patient was commenced on Eliquis by the vascular surgeons yesterday. We'll continue with the same. 7. DVT prophylaxis with Eliquis and GI with famotidine - Patient Problems (1) Atherosclerosis of [place] arteries of the extremities with ulceration Diagnosis Date: 08/17/16 Current Visit: Yes Status: Acute (2) Cellulitis of right foot Diagnosis Date: 08/17/16 Current Visit: Yes Status: Acute (3) Diabetic infection of right foot Diagnosis Date: 08/17/16 Current Visit: Yes Status: Acute (4) Hyperglycemia due to type 1 diabetes mellitus Diagnosis Date: 08/17/16 Current Visit: Yes Status: Acute (5) Accelerated hypertension Diagnosis Date: 08/17/16 Current Visit: No Status: Acute Subjective Date of service: 08/18/16 Principal diagnosis: diabetic left ulcer, hypertension, diabetes mellitus Interval history: C/o scrotla swellinh. old. No overnight events, no fever nausea, or vomiting. Objective - Constitutional Vitals: Vital Signs - 12hr 08/18/16 08/18/16 08/18/16 08:02 09:40 09:41 Temperature Pulse Rate 63 63 Pulse Rate [ Left Radial] Respiratory 20 Rate Blood Pressure 173/84 173/84 Blood Pressure [Left Arm] O2 Sat by Pulse Oximetry 08/18/16 15:25 Temperature 98.5 F Pulse Rate Pulse Rate [ 56 L Left Radial] Respiratory 18 Rate Blood Pressure Blood Pressure 189/86 [Left Arm] O2 Sat by Pulse 100 Oximetry General appearance: Present: no acute distress, well-nourished - EENT Eyes: PERRL, EOM intact ENT: hearing intact, clear oral mucosa Ears: bilateral: normal - Neck Neck: supple, normal ROM - Respiratory Respiratory effort: normal Respiratory: bilateral: CTA - Breasts Breasts: normal - Cardiovascular Rhythm: regular Heart Sounds: Present: S1 & S2. Absent: gallop, rub Extremities: pulses intact, No edema, normal color, Full ROM Extremity abnormal: other (dry wound dressing left big toe) - Gastrointestinal General gastrointestinal: Present: soft, non-tender, non-distended, normal bowel sounds - Genitourinary Male genitourinary: asymmetrical (right scrotal swelling likely hydrocele) - Integumentary Integumentary: clear, warm, dry - Musculoskeletal Musculoskeletal: 1, strength equal bilaterally - Neurologic Neurologic: moves all extremities - Psychiatric Psychiatric: memory intact, appropriate mood/affect, intact judgment & insight - Labs CBC & Chem 7: 08/17/16 06:00 08/17/16 06:00 Labs: Abnormal lab results 08/17/16 08/18/16 08/18/16 Range/Units 21:33 06:33 12:28 POC Glucose 217 H 243 H 171 H (70-105) 08/18/16 Range/Units 16:16 POC Glucose 108 H (70-105)
[2016-08-18] MEDS: XALATAN 0.005% OU SCH (21:28)
[2016-08-18] MEDS: FLOMAX PO SCH (21:29)
[2016-08-18] MEDS: ZOCOR PO SCH (21:30)
[2016-08-18] MEDS: ULTRAM PO PRN (22:00)
[2016-08-19] MEDS: ZOSYN/NS 3.375GM/50ML 50 ML IV SCH ×5 (00:34→23:55)
[2016-08-19 05:12] LABS: Basophils % (Auto) 0.6 % (0.0-1.8); Eosinophils % (Auto) 3.8 % (0.0-4.3); Hematocrit 30.5 % (35.5-45.6); Hemoglobin 9.7 gm/dl (11.8-15.2); Mean Corpuscular HGB Conc 32 % (32-34); Mean Corpuscular Hemoglobin 28 pg (28-32); Mean Corpuscular Volume 88 fl (84-94); Platelet Count 135 K/mm3 (140-440); Red Blood Count 3.49 M/mm3 (3.65-5.03); Red Cell Distribution Width 13.2 % (13.2-15.2); White Blood Count 3.9 K/mm3 (4.5-11.0)
[2016-08-19 05:23] LABS: INR 1.67 (0.87-1.13)
[2016-08-19 06:07] LABS: Albumin 3.1 g/dL (3.9-5); Albumin/Globulin Ratio 1.1 %; BUN/Creatinine Ratio 8.66; Bilirubin,Total 0.2 mg/dL (0.1-1.2); Calcium 8.5 mg/dL (8.4-10.2); Chloride 105.1 mmol/L (98-107); Potassium 3.5 mmol/L (3.6-5.0)
--- NOTE | 2016-08-19 07:43 | Vascular Lab Report ---
LOWER EXTREMITY VENOUS DUPLEX: REASON FOR EXAM: Swelling. COMMENTS ON THE RIGHT: Deep venous thrombus is noted in the right femoral vein. The remaining veins visualized are freely compressible without evidence of internal echogenicity. Spontaneous and phasic flow is present proximally. COMMENTS ON THE LEFT: Deep venous thromboses noted in the left popliteal and femoral veins. The remaining veins visualized are freely compressible without evidence of internal echogenicity. Spontaneous and phasic flow is present proximally. IMPRESSION: Bilateral deep venous thromboses
--- NOTE | 2016-08-19 07:52 | Vascular Lab Report ---
MISCELLANEOUS VESSEL IDENTIFICATION: COMMENTS ON THE SCAN: The left common femoral artery was identified and under real-time ultrasound guidance was cannulated. IMPRESSION: Successful ultrasound guided arterial cannulation.
[2016-08-19] MEDS: NOVOLOG SUB-Q SCH ×3 (07:55→16:50)
[2016-08-19] MEDS: NEURONTIN PO SCH (10:00)
[2016-08-19] MEDS: VANCOMYCIN VIAL 1,500 MG in NACL 0.9% 500 ML 500 ML IV SCH (10:00)
[2016-08-19] MEDS: COREG PO SCH ×2 (10:00→21:50)
[2016-08-19] MEDS: ELIQUIS PO SCH ×2 (10:00→21:49)
[2016-08-19] MEDS: PEPCID IV SCH (10:00)
[2016-08-19] MEDS: COLACE PO SCH ×2 (10:00→22:00)
[2016-08-19] MEDS: BABY ASPIRIN PO SCH (10:00)
[2016-08-19] MEDS: NORVASC PO SCH (10:00)
--- NOTE | 2016-08-19 10:28 | Ultrasound Report ---
Testicular ultrasound: History: Chronic painless swelling more than 10 years. The right testicle measures 2.2 x 2.3 x 3.3 cm. There is a echogenic bang at the margin inferiorly. The epididymis measures approximately 11 mm and is not otherwise remarkable. There is an unremarkable vascular flow pattern. The left testicle measures 28 x 19 x 30 mm. It is slightly inhomogeneous with multiple low attenuation streaks through the testicle however there is no focal mass. Small focal calcification. There is a normal flow pattern. The epididymis on the left measures 17 mm in greatest dimension and body also appear somewhat thickened and the epididymis on the right. No abnormal collections related to the epididymis. There large bilateral hydroceles which is larger on the right and left. Impression: 1. Nonspecific large bilateral hydroceles right greater than left. 2. Nonspecific mild enlargement of the left epididymis. In the absence of pain and asymmetric increased blood flow the significance is unclear.
[2016-08-19] MEDS: ZESTRIL PO SCH (11:30)
--- NOTE | 2016-08-19 12:34 | Progress Note ---
Assessment and Plan 1. Diabetic left foot ulcer: Wound culture has yielded no growth so far. Continue with IV Zosyn and vancomycin, local wound care. Ordered MRI to rule out osteomyelitis. 2. Diabetes mellitus uncontrolled: On sliding scale insulin and consistent collided diet. 3. Anemia: Of chronic disease. Continue chronic disease care management and trend H&H 4. Hypertension: Optimize with oral antihypertensives - Amlodipine, Carvedilol , hydralazine and Lisinopril 5. Peripheral arterial disease status post stent placement: Continue anticoagulation and antiplalet therapy 6. DVT: Left subacute and right chronic DVT. Continue with Eliquis. 7. DVT prophylaxis with Eliquis and GI with famotidine - Patient Problems (1) Atherosclerosis of [place] arteries of the extremities with ulceration Diagnosis Date: 08/17/16 Current Visit: Yes Status: Acute (2) Cellulitis of right foot Diagnosis Date: 08/17/16 Current Visit: Yes Status: Acute (3) Diabetic infection of right foot Diagnosis Date: 08/17/16 Current Visit: Yes Status: Acute (4) Hyperglycemia due to type 1 diabetes mellitus Diagnosis Date: 08/17/16 Current Visit: Yes Status: Acute (5) Accelerated hypertension Diagnosis Date: 08/17/16 Current Visit: No Status: Acute Subjective Principal diagnosis: diabetic left ulcer, hypertension, diabetes mellitus Interval history: No overnight events. Objective - Constitutional Vitals: Vital Signs - 12hr 08/19/16 08/19/16 08/19/16 00:42 02:23 07:52 Temperature 98.0 F 98.4 F Pulse Rate [ 63 60 66 Left Radial] Respiratory 20 20 14 Rate Blood Pressure 192/91 160/80 193/85 [Left Arm] O2 Sat by Pulse 98 99 Oximetry General appearance: Present: no acute distress, well-nourished - EENT Eyes: PERRL, EOM intact ENT: hearing intact, clear oral mucosa Ears: bilateral: normal - Neck Neck: supple, normal ROM - Respiratory Respiratory effort: normal Respiratory: bilateral: CTA - Breasts Breasts: normal - Cardiovascular Rhythm: regular Heart Sounds: Present: S1 & S2. Absent: gallop, rub Extremities: pulses intact, No edema, normal color, Full ROM Extremity abnormal: ulceration - Gastrointestinal General gastrointestinal: Present: soft, non-tender, non-distended, normal bowel sounds - Genitourinary Male genitourinary: normal - Integumentary Integumentary: clear, warm, dry - Musculoskeletal Musculoskeletal: 1, strength equal bilaterally - Neurologic Neurologic: moves all extremities - Psychiatric Psychiatric: memory intact, appropriate mood/affect, intact judgment & insight - Labs CBC & Chem 7: 08/19/16 04:47 08/19/16 04:47 Labs: Abnormal lab results 08/18/16 08/18/16 08/18/16 Range/Units 12:28 16:16 20:37 WBC (4.5-11.0) K/mm3 RBC (3.65-5.03) M/mm3 Hgb (11.8-15.2) gm/dl Hct (35.5-45.6) % Plt Count (140-440) K/mm3 [place] % (Auto) (0.0-7.3) % PT (12.2-14.9) Sec. INR (0.87-1.13) Potassium (3.6-5.0) mmol/L POC Glucose 171 H 108 H (70-105) Hemoglobin A1c 6.7 H (4-6) % Total Protein (6.3-8.2) g/dL Albumin (3.9-5) g/dL 08/18/16 08/19/16 08/19/16 Range/Units 21:44 04:47 04:47 WBC 3.9 L (4.5-11.0) K/mm3 RBC 3.49 L (3.65-5.03) M/mm3 Hgb 9.7 L (11.8-15.2) gm/dl Hct 30.5 L (35.5-45.6) % Plt Count 135 L (140-440) K/mm3 [place] % (Auto) 12.2 H (0.0-7.3) % PT 19.7 H (12.2-14.9) Sec. INR 1.67 H (0.87-1.13) Potassium (3.6-5.0) mmol/L POC Glucose 295 H (70-105) Hemoglobin A1c (4-6) % Total Protein (6.3-8.2) g/dL Albumin (3.9-5) g/dL 08/19/16 08/19/16 Range/Units 04:47 11:36 WBC (4.5-11.0) K/mm3 RBC (3.65-5.03) M/mm3 Hgb (11.8-15.2) gm/dl Hct (35.5-45.6) % Plt Count (140-440) K/mm3 [place] % (Auto) (0.0-7.3) % PT (12.2-14.9) Sec. INR (0.87-1.13) Potassium 3.5 L (3.6-5.0) mmol/L POC Glucose 231 H (70-105) Hemoglobin A1c (4-6) % Total Protein 6.0 L (6.3-8.2) g/dL Albumin 3.1 L (3.9-5) g/dL
[2016-08-19] MEDS: APRESOLINE PO SCH ×2 (12:41→21:53)
[2016-08-19] MEDS: ZOCOR PO SCH (21:49)
[2016-08-19] MEDS: FLOMAX PO SCH (21:50)
[2016-08-19] MEDS: ULTRAM PO PRN (22:05)
[2016-08-19] MEDS: XALATAN 0.005% OU SCH (22:05)
[2016-08-20] MEDS: NOVOLOG SUB-Q SCH ×5 (00:05→21:40)
[2016-08-20] MEDS: VANCOMYCIN VIAL 1,500 MG in NACL 0.9% 500 ML 500 ML IV SCH ×2 (03:41→21:20)
[2016-08-20] MEDS: ZOSYN/NS 3.375GM/50ML 50 ML IV SCH ×4 (05:46→18:49)
[2016-08-20 07:31] LABS: Basophils % (Auto) 0.7 % (0.0-1.8); Eosinophils % (Auto) 3.9 % (0.0-4.3); Hematocrit 31.1 % (35.5-45.6); Mean Corpuscular HGB Conc 32 % (32-34); Mean Corpuscular Hemoglobin 28 pg (28-32); Mean Corpuscular Volume 87 fl (84-94); Platelet Count 136 K/mm3 (140-440); Red Blood Count 3.56 M/mm3 (3.65-5.03); Red Cell Distribution Width 13.1 % (13.2-15.2); White Blood Count 3.5 K/mm3 (4.5-11.0)
[2016-08-20 08:14] LABS: Albumin 3.3 g/dL (3.9-5); Albumin/Globulin Ratio 1.1 %; Bilirubin,Total 0.3 mg/dL (0.1-1.2); Calcium 8.6 mg/dL (8.4-10.2); Total Protein 6.2 g/dL (6.3-8.2)
[2016-08-20 08:15] LABS: Potassium 3.5 mmol/L (3.6-5.0)
--- NOTE | 2016-08-20 08:38 | Progress Note ---
Assessment and Plan Assessment and plan: Diabetic right foot ulcer: Wound culture has yielded no growth so far. Continue with IV Zosyn and vancomycin, local wound care. MRI foot to rule out osteomyelitis. Ischemia of both lower extremities, right worse than left, Status post angiography and angioplasty by Dr. Zavala on 08/16/16. Diabetes mellitus uncontrolled: On sliding scale insulin and consistent carbohydrate diet. Anemia: Of chronic disease. Continue chronic disease care management and trend H&H Hypertension: Optimize with oral antihypertensives - Amlodipine, Carvedilol, hydralazine and Lisinopril Peripheral arterial disease status post stent placement: Continue anticoagulation and antiplalet therapy DVT bilateral lower ext. 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 Abdomen: soft nontender, nondistended, normal bowel sounds Extremities: right foot infection and drainage Neuro :awake alert oriented 3, no focal signs Psych :appropriate mood - Constitutional Vitals: Temp Pulse Resp BP Pulse Ox 98.1 F 78 18 177/74 98 08/20/16 07:05 08/20/16 07:05 08/20/16 07:05 08/20/16 07:05 08/19/16 15:25 General appearance: Present: no acute distress, well-nourished Results - Labs CBC & Chem 7: 08/20/16 06:42 08/20/16 06:42 Labs: Laboratory Last Values WBC 3.5 K/mm3 (4.5-11.0) L 08/20/16 06:42 RBC 3.56 M/mm3 (3.65-5.03) L 08/20/16 06:42 Hgb 10.0 gm/dl (11.8-15.2) L 08/20/16 06:42 Hct 31.1 % (35.5-45.6) L 08/20/16 06:42 MCV 87 fl (84-94) 08/20/16 06:42 MCH 28 pg (28-32) 08/20/16 06:42 MCHC 32 % (32-34) 08/20/16 06:42 RDW 13.1 % (13.2-15.2) L 08/20/16 06:42 Plt Count 136 K/mm3 (140-440) L 08/20/16 06:42 Lymph % (Auto) 29.6 % (13.4-35.0) 08/20/16 06:42 [place] % (Auto) 11.4 % (0.0-7.3) H 08/20/16 06:42 Eos % (Auto) 3.9 % (0.0-4.3) 08/20/16 06:42 Baso % (Auto) 0.7 % (0.0-1.8) 08/20/16 06:42 Lymph # 1.0 K/mm3 (1.2-5.4) L 08/20/16 06:42 [place] # 0.4 K/mm3 (0.0-0.8) 08/20/16 06:42 Eos # 0.1 K/mm3 (0.0-0.4) 08/20/16 06:42 Baso # 0.0 K/mm3 (0.0-0.1) 08/20/16 06:42 Seg Neutrophils % 54.4 % (40.0-70.0) 08/20/16 06:42 Seg Neutrophils # 1.9 K/mm3 (1.8-7.7) 08/20/16 06:42 ESR 23 mm/Hr (0-20) 08/15/16 08:08 PT 19.7 Sec. (12.2-14.9) H 08/19/16 04:47 INR 1.67 (0.87-1.13) H 08/19/16 04:47 VBG pH 7.332 (7.320-7.420) 08/14/16 22:37 Sodium 139 mmol/L (137-145) 08/20/16 06:42 Potassium 3.5 mmol/L (3.6-5.0) L 08/20/16 06:42 Chloride 105.0 mmol/L (98-107) 08/20/16 06:42 Carbon Dioxide 23 mmol/L (22-30) 08/20/16 06:42 Anion Gap 15 mmol/L 08/20/16 06:42 BUN 15 mg/dL (9-20) 08/20/16 06:42 Creatinine 1.5 mg/dL (0.8-1.5) 08/20/16 06:42 Estimated GFR 56 ml/min 08/20/16 06:42 BUN/Creatinine Ratio 10.00 % 08/20/16 06:42 Glucose 125 mg/dL (75-100) H 08/20/16 06:42 POC Glucose 113 (70-105) H 08/20/16 06:08 Hemoglobin A1c 6.7 % (4-6) H 08/18/16 20:37 Lactic Acid 0.9 mmol/L (0.7-2.0) 08/15/16 08:08 Calcium 8.6 mg/dL (8.4-10.2) 08/20/16 06:42 Total Bilirubin 0.3 mg/dL (0.1-1.2) 08/20/16 06:42 AST 13 units/L (5-40) 08/20/16 06:42 ALT 7 units/L (7-56) 08/20/16 06:42 Alkaline Phosphatase 37 units/L (35-129) 08/20/16 06:42 C-Reactive Protein 0.30 mg/dL (0.00-1.30) 08/15/16 08:08 Total Protein 6.2 g/dL (6.3-8.2) L 08/20/16 06:42 Albumin 3.3 g/dL (3.9-5) L 08/20/16 06:42 Albumin/Globulin Ratio 1.1 % 08/20/16 06:42 Urine Color Yellow (Yellow) 08/14/16 22:45 Urine Turbidity Clear (Clear) 08/14/16 22:45 Urine pH 6.0 (5.0-7.0) 08/14/16 22:45 Ur Specific [place] 1.025 (1.003-1.030) 08/14/16 22:45 Urine Protein <30 mg dl mg/dL (Negative) 08/14/16 22:45 Urine Glucose (UA) Trace mg/dL (Negative) 08/14/16 22:45 Urine Ketones Negative mg/dL (Negative) 08/14/16 22:45 Urine Blood Trace (Negative) 08/14/16 22:45 Urine Nitrite Negative (Negative) 08/14/16 22:45 Ur Reducing Substances Not Reportable 08/14/16 22:45 Urine Bilirubin Negative (Negative) 08/14/16 22:45 Urine Ictotest Not Reportable 08/14/16 22:45 Urine Urobilinogen 0.2 mg/dL (<2.0) 08/14/16 22:45 Ur Leukocyte Esterase Negative (Negative) 08/14/16 22:45 Urine WBC (Auto) < 1.0 /HPF (0.0-6.0) 08/14/16 22:45 Urine RBC (Auto) < 1.0 /HPF (0.0-6.0) 08/14/16 22:45 U Epithel Cells (Auto) < 1.0 /HPF (0-13.0) 08/14/16 22:45 Vancomycin Trough 8.9 ug/mL (5.0-20.0) 08/19/16 11:00 Ketones 0.5 mg/dL (0.2-2.8) 08/14/16 22:37
[2016-08-20] MEDS: APRESOLINE PO SCH ×2 (09:29→21:22)
[2016-08-20] MEDS: PEPCID IV SCH (09:29)
[2016-08-20] MEDS: ELIQUIS PO SCH ×2 (09:30→21:23)
[2016-08-20] MEDS: ZESTRIL PO SCH (09:30)
[2016-08-20] MEDS: COLACE PO SCH ×2 (09:30→21:24)
[2016-08-20] MEDS: NORVASC PO SCH (09:30)
[2016-08-20] MEDS: COREG PO SCH ×2 (09:30→21:22)
[2016-08-20] MEDS: NEURONTIN PO SCH (09:30)
[2016-08-20] MEDS: BABY ASPIRIN PO SCH (09:31)
[2016-08-20] MEDS: PERCOCET 5/325 PO PRN (09:45)
[2016-08-20] MEDS: XALATAN 0.005% OU SCH (21:21)
[2016-08-20] MEDS: FLOMAX PO SCH (21:30)
[2016-08-20] MEDS: ZOCOR PO SCH (21:41)
[2016-08-20] MEDS: ULTRAM PO PRN (21:58)
[2016-08-20 23:16] VITALS: BP 188/86
[2016-08-21] MEDS: ZOSYN/NS 3.375GM/50ML 50 ML IV SCH (00:12)
--- NOTE | 2016-08-21 10:46 | Magnetic Resonance Report ---
MR LOWER EXTREMITY NON-JOINT RIGHT WITH AND WITHOUT CONTRAST: HISTORY: Diabetic foot ulcer, right foot pain, evaluate for osteomyelitis. TECHNIQUE: Multisequence, multiplanar images before and after 15 cc of Multihance intravenously. COMPARISON: Right foot films dated 06/07/16, 06/13/16, and 08/15/16. FINDINGS: There is diffuse soft tissue edema and skin thickening particularly on the dorsum of the foot consistent with a cellulitis. Edema is also within the musculature of the foot with mild enhancement which could represent a mild myositis. There is no evidence for abscess or soft tissue gas. The bone marrow signal within the remaining distal phalanx of the right great toe is abnormal. There is diffuse decreased signal on T1 and mild edema on the T2-weighted images. There appears to be a chronic deformity of the distal phalanx as well. There may be minimal enhancement on the postcontrast images. Acute osteomyelitis of the distal phalanx of the great toe should be considered. This may represent acute on chronic osteomyelitis or chronic osteomyelitis. The bone marrow signal within the remaining visualized osseous structures are within normal limits. Chronic osteolysis of the fourth toe is noted. No evidence for fracture or bony erosions. Mild osteoarthritic changes are noted. The visualized musculotendinous structures are intact and unremarkable. IMPRESSION: Abnormal distal phalanx of the right great toe, as outlined above. This may represent acute on chronic osteomyelitis. Chronic osteomyelitis could also be considered. Cellulitis. Myositis.
--- NOTE | 2016-08-21 16:08 | Discharge Summary ---
Providers - Providers Date of Admission: 08/15/16 11:01 Date of discharge: 08/21/16 Attending physician: TORIE LOPEZ 08/15/16 22:50 Consult to Case Management [CONS] Routine Services Needed at Discharge: Medical Record Coder Notified:: porter sample case Was contact made?: No Consult to Wound/ET Nurse [CONS] Routine Reason For Exam: wound eval Primary care physician: RIVKA CORDOVA Hospitalization Condition: Fair Hospital course: Patient is 71 yo with diabetes , hypertension presents with right foot ulcer with drainage. He was started on iv Antibiotics, Zosyn and Vancomycin and admitted. Vas surg was consulted and he was evaluated by Dr. Zavala. On 08/16/16, he did angiography, atherectomy and angioplasty of right lower ext. Also Doppler ultrasound legs show bilateral DVT so he was started on Wliquis. He felt better, MRI right foot showed acute on chronic osteo distal phlanx right toe. I discussed with [facility] surgeon. He recommends patient can be discharged and follow with his gaming table operator as outpatient for management of osteomyelitis. He was subsequently discharged on 08/21/16. Total time spent on discharge, 35 mins Disposition: DC/TX HOME UNDER HOME HEALTH - Discharge Diagnoses (1) Diabetic infection of right foot Status: Acute (2) Cellulitis of right foot Status: Acute (3) Diabetes mellitus type 2 in nonobese Status: Chronic (4) Hydrocele, bilateral Status: Acute (5) Ischemia of lower extremity Status: Acute (6) Atherosclerosis of [place] arteries of the extremities with ulceration Status: Acute (7) Osteomyelitis of right foot Status: Acute Qualifiers: Chronicity: C (8) DVT of lower extremity, bilateral Status: Acute Qualifiers: Affected thrombotic vein of extremity: A Chronicity: C Core Measure Documentation - Palliative Care Palliative Care/ Comfort Measures: Not Applicable - Core Measures Any of the following diagnoses?: DVT/PE - VTE Discharge Requirements Deep Vein Thrombosis/Pulmonary Embolism Present on Admission: Yes Has pt received <5 days of overlap therapy or INR<2.0: Yes Anticoagulant overlap therapy prescribed at discharge: No Contraindication No Overlap Therapy order at DC: Not Indicated (Discharge on Eliquis) Exam - Physical Exam Narrative exam: Gen appearance: not in acute distress, HEENT: normocephalic atraumatic, Neck : supple, no JVD Lungs: clear to auscultation bilaterally, no crackles, no wheezing, Heart : S1 and S2 regular, no murmurs rubs or gallop, 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 2.Follow up with Dr. Zavala in 1 week. 3.Follow up with Dr. Jain, Urology in 1-2 days. 4.Follow up with Dr. Conner, Podiatry in 3-5 days Follow up with: RIVKA CORDOVA MD [Primary Care Provider] - 7 Days Prescriptions: Apixaban [Eliquis] 10 mg PO BID 3 Days Apixaban [Eliquis] 5 mg PO BID #60 tablet
[2016-08-21] MEDS: NOVOLOG SUB-Q SCH (18:06)
[2016-08-24] MEDS ORDERED: ELIQUIS PO SCH (22:00)
== END 2016-08-21 18:30 | disposition home health service (06) | DRG 271 ==
LOC: ED 16:01 → 3A 08-15 11:01
PROVIDERS: ADMIT Internal Medicine; ATTEND Internal Medicine
PROC: 04CP3ZZ Extirpation of Matter from Right Anterior Tibial Artery, Percutaneous Approach (ICD-10-PCS; principal; 2016-08-16)
PROC: 047P3ZZ Dilation of Right Anterior Tibial Artery, Percutaneous Approach (ICD-10-PCS; 2016-08-16)
PROC: B41D1ZZ Fluoroscopy of Aorta and Bilateral Lower Extremity Arteries using Low Osmolar Contrast (ICD-10-PCS; 2016-08-16)
DX: I70.25 Atherosclerosis of native arteries of other extremities with ulceration (principal); I82.411 Acute embolism and thrombosis of right femoral vein; L03.115 Cellulitis of right lower limb; I82.512 Chronic embolism and thrombosis of left femoral vein; I10 Essential (primary) hypertension; I77.9 Disorder of arteries and arterioles, unspecified; E78.5 Hyperlipidemia, unspecified; D63.8 Anemia in other chronic diseases classified elsewhere; E10.42 Type 1 diabetes mellitus with diabetic polyneuropathy; E10.65 Type 1 diabetes mellitus with hyperglycemia; E10.621 Type 1 diabetes mellitus with foot ulcer; N43.3 Hydrocele, unspecified; Z89.421 Acquired absence of other right toe(s); Z79.4 Long term (current) use of insulin; Z79.01 Long term (current) use of anticoagulants; Z98.890 Other specified postprocedural states; Z82.49 Family history of ischemic heart disease and other diseases of the circulatory system
CPT/HCPCS: 36415; 37229; 71010; 75625; 75710; 76937; 80048; 80053; 80202; 81001; 82010; 82140; 82805; 82962; 83036; 85025; 85610; 85652; 86140; 87040; 93922; 93925; 93970; 93975; 96365; 96372; A9577; C1724; C1725; C1760; C1769; C1887; J0690; J1644; J1650; J1815; J2250; J2543; J3010; J3370; J7030; J7040; J7050; Q9967

== ENCOUNTER 2016-08-26 09:32 | Outpatient (CLI) | payer MEDICARE ==
[2016-08-26] MEDS ORDERED: XYLOCAINE TOPICAL 2% ONE (11:48)
[2016-08-26] MEDS ORDERED: XYLOCAINE TOPICAL 2% TP ONE (14:22)
== END 2016-08-26 09:33 | disposition home or self-care (01) ==
LOC: WOUND 09:32
PROVIDERS: ATTEND Internal Medicine
DX: E11.621 Type 2 diabetes mellitus with foot ulcer (principal); L97.511 Non-pressure chronic ulcer of other part of right foot limited to breakdown of skin; E11.40 Type 2 diabetes mellitus with diabetic neuropathy, unspecified; I25.10 Atherosclerotic heart disease of native coronary artery without angina pectoris; I10 Essential (primary) hypertension; L84 Corns and callosities
CPT/HCPCS: 11042; G0463

== ENCOUNTER 2016-09-02 10:53 | Outpatient (CLI) | payer MEDICARE ==
[2016-09-02] MEDS ORDERED: XYLOCAINE TOPICAL 2% ONE (11:49)
[2016-09-02] MEDS ORDERED: XYLOCAINE TOPICAL 2% TP ONE (16:32)
== END 2016-09-02 10:54 | disposition home or self-care (01) ==
LOC: WOUND 10:53
PROVIDERS: ATTEND Internal Medicine
DX: E11.621 Type 2 diabetes mellitus with foot ulcer (principal); L97.511 Non-pressure chronic ulcer of other part of right foot limited to breakdown of skin; E78.2 Mixed hyperlipidemia; I10 Essential (primary) hypertension; I82.501 Chronic embolism and thrombosis of unspecified deep veins of right lower extremity; N40.0 Benign prostatic hyperplasia without lower urinary tract symptoms; I25.10 Atherosclerotic heart disease of native coronary artery without angina pectoris; H40.1110 Primary open-angle glaucoma, right eye, stage unspecified; Z86.718 Personal history of other venous thrombosis and embolism

== ENCOUNTER 2017-01-03 11:25 | Outpatient (CLI) | payer MEDICARE ==
--- NOTE | 2017-01-03 12:50 | Ultrasound Report ---
ULTRASOUND TESTICULAR DOPPLER COMPLETE History: Scrotal pain. Technique: Trans-scrotal ultrasound with spectral doppler interrogation. Findings: Compared to 08/19/16. Large bilateral hydroceles, right greater than left, is again noted. The hydroceles contain moderate degree but no obvious septation. This is essentially unchanged since the previous exam. The right testicle measures 3.5 x 2.1 x 2.0 cm. The left testicle measures 3.2 x 2.2 x 2.6 cm. Both testicles are slightly heterogeneous but no evidence for cyst, mass or calcifications. Spectral Doppler waveforms demonstrate arterial flow to both testicles. The epididymides are poorly imaged but appears normal size, contour and echotexture. Impression: Large bilateral hydroceles. Essentially unremarkable testes and epididymides. No significant change since 08/19/16.
== END 2017-01-03 11:26 | disposition home or self-care (01) ==
LOC: US 11:25
PROVIDERS: ATTEND Urology
DX: N43.3 Hydrocele, unspecified (principal); N50.82 Scrotal pain; I10 Essential (primary) hypertension; E11.9 Type 2 diabetes mellitus without complications
CPT/HCPCS: 93975

== ENCOUNTER 2017-08-19 08:12 | Outpatient (CLI) | payer MEDICARE ==
[2017-08-19] MEDS ORDERED: XYLOCAINE TOPICAL 4% TP ONE ×2 (08:39→08:47)
== END 2017-08-19 08:13 | disposition home or self-care (01) ==
LOC: WOUND 08:12
PROVIDERS: ATTEND Surgery
DX: E11.622 Type 2 diabetes mellitus with other skin ulcer (principal); L97.521 Non-pressure chronic ulcer of other part of left foot limited to breakdown of skin; L97.511 Non-pressure chronic ulcer of other part of right foot limited to breakdown of skin; I25.10 Atherosclerotic heart disease of native coronary artery without angina pectoris; E78.5 Hyperlipidemia, unspecified; L84 Corns and callosities; L97.812 Non-pressure chronic ulcer of other part of right lower leg with fat layer exposed; L97.822 Non-pressure chronic ulcer of other part of left lower leg with fat layer exposed; Z86.718 Personal history of other venous thrombosis and embolism
CPT/HCPCS: 11042; 11045; G0463

== ENCOUNTER 2017-08-26 13:54 | Outpatient (CLI) | payer MEDICARE ==
[2017-08-26] MEDS ORDERED: XYLOCAINE TOPICAL 4% TP ONE ×2 (14:24→15:00)
== END 2017-08-26 13:55 | disposition home or self-care (01) ==
LOC: WOUND 13:54
PROVIDERS: ATTEND Surgery
DX: E11.621 Type 2 diabetes mellitus with foot ulcer (principal); L97.521 Non-pressure chronic ulcer of other part of left foot limited to breakdown of skin; L97.511 Non-pressure chronic ulcer of other part of right foot limited to breakdown of skin; E11.40 Type 2 diabetes mellitus with diabetic neuropathy, unspecified; E11.39 Type 2 diabetes mellitus with other diabetic ophthalmic complication; H40.9 Unspecified glaucoma; I25.10 Atherosclerotic heart disease of native coronary artery without angina pectoris; E78.5 Hyperlipidemia, unspecified; L84 Corns and callosities; I10 Essential (primary) hypertension; Z86.718 Personal history of other venous thrombosis and embolism

== ENCOUNTER 2017-08-28 11:50 | Outpatient (CLI) | payer MEDICARE ==
--- NOTE | 2017-09-03 09:25 | Vascular Lab Report ---
LOWER EXTREMITY ARTERIAL DUPLEX: REASON FOR EXAM: Bilateral lower extremity ulcers. COMMENTS ON THE RIGHT: Triphasic waveforms are seen proximally. Triphasic waveforms are seen distally. No significant velocity gradients are identified. No significant plaque is identified. Findings are consistent with normal perfusion. Findings are consistent with the ability to heal distal wounds. COMMENTS ON THE LEFT: Triphasic waveforms are seen proximally. Triphasic waveforms are seen distally. No significant velocity gradients are identified. No significant plaque is identified. Findings are consistent with normal perfusion. Findings are consistent with the ability to heal distal wounds. IMPRESSION: RIGHT: Essentially normal arterial flow. LEFT:Essentially normal arterial flow.
== END 2017-08-28 11:51 | disposition home or self-care (01) ==
LOC: VAS 11:50
PROVIDERS: ATTEND Surgery
DX: E11.621 Type 2 diabetes mellitus with foot ulcer (principal); L97.812 Non-pressure chronic ulcer of other part of right lower leg with fat layer exposed; L97.922 Non-pressure chronic ulcer of unspecified part of left lower leg with fat layer exposed
CPT/HCPCS: 93925

== ENCOUNTER 2017-08-29 10:57 | Outpatient (CLI) | payer MEDICARE ==
[2017-08-29] MEDS ORDERED: ANTIBIOTIC OINT TP ONE (12:08)
[2017-08-29] MEDS ORDERED: ANTIBIOTIC OINT TP SCH (22:00)
== END 2017-08-29 10:58 | disposition home or self-care (01) ==
LOC: WOUND 10:57
PROVIDERS: ATTEND Podiatrist
DX: E11.621 Type 2 diabetes mellitus with foot ulcer (principal); L97.521 Non-pressure chronic ulcer of other part of left foot limited to breakdown of skin; L97.511 Non-pressure chronic ulcer of other part of right foot limited to breakdown of skin; E11.40 Type 2 diabetes mellitus with diabetic neuropathy, unspecified; B35.1 Tinea unguium; L84 Corns and callosities; I25.10 Atherosclerotic heart disease of native coronary artery without angina pectoris; E78.5 Hyperlipidemia, unspecified; E11.39 Type 2 diabetes mellitus with other diabetic ophthalmic complication; H40.9 Unspecified glaucoma; Z86.718 Personal history of other venous thrombosis and embolism
CPT/HCPCS: 11055

== ENCOUNTER 2017-08-31 11:45 | Emergency (ER) | payer MEDICARE ==
[2017-08-31] MEDS ORDERED: GUAIFENESIN DM SYRUP PO ONE (14:36)
[2017-08-31] MEDS ORDERED: NORCO 5/325 PO ONE (14:37)
--- NOTE | 2017-08-31 14:43 | Emergency Department Report ---
Chief Complaint: Pain General Stated Complaint: FLU LIKE SYMPTOMS Time Seen by Provider: 08/31/17 14:35 - HPI History of Present Illness: The patient is a 72 -year-old male with a history of diabetes, chronic smokers cough, and chronic myalgias, who presents for evaluation of cough and muscle aches. The patient reports that no productive cough since this morning, runny nose, recurrence of chronic generalized muscle aches which he has had many years. - Exam Vital Signs: Vital Signs 08/31/17 11:54 Temperature 97.9 F Pulse Rate 94 H Respiratory 16 Rate Blood Pressure 140/76 O2 Sat by Pulse 96 Oximetry MSE screening note: Focused history and physical exam performed. Due to findings the following was ordered: Labs a medication for the patient's symptoms are ordered. ED Disposition for MSE Condition: Stable
--- NOTE | 2017-08-31 15:46 | XRay Report ---
FINAL REPORT PROCEDURE: XR CHEST ROUTINE 2V TECHNIQUE: PA and lateral chest radiographs were obtained. CPT 21252 HISTORY: dyspnea COMPARISON: No prior studies are available for comparison. FINDINGS: Heart: Normal. Mediastinum/Vessels: Normal. Lungs/Pleural space: No infiltrate, effusion, or pneumothorax is seen. Bony thorax: No acute osseous abnormality. Other: IMPRESSION: No pulmonary infiltrate is identified.
[2017-08-31 16:35] LABS: Basophils % (Auto) 0.7 % (0.0-1.8); Eosinophils % (Auto) 0.8 % (0.0-4.3); Hematocrit 34.4 % (35.5-45.6); Lymphocytes # (Auto) 0.4 K/mm3 (1.2-5.4); Lymphocytes % (Auto) 6.5 % (13.4-35.0); Mean Corpuscular HGB Conc 32 % (32-34); Mean Corpuscular Hemoglobin 28 pg (28-32); Mean Corpuscular Volume 89 fl (84-94); Monocytes # (Auto) 0.3 K/mm3 (0.0-0.8); Monocytes % (Auto) 5.9 % (0.0-7.3); Platelet Count 159 K/mm3 (140-440); Red Blood Count 3.87 M/mm3 (3.65-5.03); Red Cell Distribution Width 12.6 % (13.2-15.2)
[2017-08-31 17:03] LABS: Albumin 3.7 g/dL (3.9-5); Calcium 8.8 mg/dL (8.4-10.2)
--- NOTE | 2017-09-01 01:48 | Emergency Department Report ---
ED General Adult HPI - General Chief complaint: Pain General Stated complaint: FLU LIKE SYMPTOMS Time Seen by Provider: 08/31/17 14:35 Source: patient Mode of arrival: Ambulatory Limitations: No Limitations - History of Present Illness Initial comments: Patient with history of diabetes history of peripheral vascular disease history of DVT patient is here with generalized malaise with flulike symptoms. He says he is also out of his pain medicine that he takes chronically for his chronic muscle pains. He denied any chest pain he had any shortness of breath he is having generalized malaise no urinary symptoms no headache no stiff neck, rash no fever. He does have sinus congestion with questionable purulence with a nonproductive cough. Denies any abdominal pain denies any extremity complaints here for evaluation of flulike symptoms with sinus congestion and nonproductive cough. Without headache no stiff neck no rash Severity scale (0 -10): 0 - Related Data Home Medications Medication Instructions Recorded Confirmed Last Taken Tramadol HCl [Ultram ER] 100 mg PO QID PRN 06/01/13 08/15/16 1 Day Ago ~02/28/16 100 Travoprost [Travatan Z] 1 drop OP BID 11/05/15 08/15/16 08/14/16 Previous Rx's Medication Instructions Recorded Last Taken Type Insulin Lispro Prot/Lispro 15 - 18 units SC BID #1 bottle 11/11/15 1 Day Ago Rx [HumaLOG Mix 75/25 Vial] ~02/28/16 15 Carvedilol [Coreg] 25 mg PO BID #60 tablet 03/04/16 08/14/16 Rx Gabapentin [Neurontin] 300 mg PO QDAY #30 capsule 03/04/16 Unknown Rx Simvastatin [Zocor TAB] 20 mg PO QHS #30 tablet 03/04/16 Unknown Rx Tamsulosin [Flomax] 0.4 mg PO QHS #30 03/04/16 1 Day Ago Rx ~02/28/16 0.4 amLODIPine [Norvasc] 5 mg PO DAILY #30 tab 03/04/16 Unknown Rx Apixaban [Eliquis] 5 mg PO BID #60 tablet 08/21/16 Unknown Rx Apixaban [Eliquis] 10 mg PO BID 3 Days tablet 08/21/16 Unknown Rx Doxycycline [Vibramycin CAP] 100 mg PO Q12HR #14 capsule 09/01/17 Unknown Rx Oseltamivir [Tamiflu] 75 mg PO BID #10 cap 09/01/17 Unknown Rx guaiFENesin/CODEINE [Robitussin AC] 5 ml PO QID #120 oral.liqd 09/01/17 Unknown Rx Allergies Allergy/AdvReac Type Severity Reaction Status Date / Time No Known Allergies Allergy Verified 06/28/16 15:48 ED Review of Systems ROS: Stated complaint: FLU LIKE SYMPTOMS Other details as noted in HPI Comment: All other systems reviewed and negative Constitutional: malaise. denies: diaphoresis, weakness ENT: throat pain, congestion Respiratory: cough. denies: orthopnea, shortness of breath, SOB with exertion, SOB at rest, stridor, wheezing Cardiovascular: denies: chest pain, palpitations, dyspnea on exertion, orthopnea , edema, syncope, paroxysmal nocturnal dyspnea Gastrointestinal: denies: abdominal pain, nausea, vomiting, diarrhea, constipation, hematemesis, melena, hematochezia Neurological: denies: headache, weakness, numbness, paresthesias, confusion, abnormal gait, vertigo ED Past Medical Hx - Past Medical History Hx Hypertension: Yes Hx CVA: No Hx Heart Attack/AMI: No Hx Congestive Heart Failure: No Hx Diabetes: Yes Hx Deep Vein Thrombosis: Yes Hx Pulmonary Embolism: No Hx GERD: No Hx Liver Disease: No Hx Renal Disease: Yes Hx Sickle Cell Disease: No Hx Arthritis: Yes Hx Headaches / Migraines: No Hx Seizures: No Hx Kidney Stones: No Hx Psychiatric Treatment: No Hx Asthma: No Hx COPD: No Hx Tuberculosis: No Hx Dementia: No Hx HIV: No Additional medical history: Diabetic neuropathy. Currently taking Xarelto for previous DVT. - Surgical History Hx Coronary Stent: No Hx Open Heart Surgery: No Hx Pacemaker: No Hx Internal Defibrillator: No Hx Cholecystectomy: No Hx Appendectomy: No Hx Breast Surgery: No Additional Surgical History: "RIGHT FOOT SURGERY" - Social History Smoking Status: Never Smoker - Medications Home Medications: Home Medications Medication Instructions Recorded Confirmed Last Taken Type Tramadol HCl [Ultram ER] 100 mg PO QID PRN 06/01/13 08/15/16 1 Day Ago History ~02/28/16 100 Travoprost [Travatan Z] 1 drop OP BID 11/05/15 08/15/16 08/14/16 History Insulin Lispro Prot/Lispro 15 - 18 units SC BID #1 bottle 11/11/15 08/15/16 1 Day Ago Rx [HumaLOG Mix 75/25 Vial] ~02/28/16 15 Carvedilol [Coreg] 25 mg PO BID #60 tablet 03/04/16 08/15/16 08/14/16 Rx Gabapentin [Neurontin] 300 mg PO QDAY #30 capsule 03/04/16 08/15/16 Unknown Rx Simvastatin [Zocor TAB] 20 mg PO QHS #30 tablet 03/04/16 08/15/16 Unknown Rx Tamsulosin [Flomax] 0.4 mg PO QHS #30 03/04/16 08/15/16 1 Day Ago Rx ~02/28/16 0.4 amLODIPine [Norvasc] 5 mg PO DAILY #30 tab 03/04/16 08/15/16 Unknown Rx Apixaban [Eliquis] 5 mg PO BID #60 tablet 08/21/16 Unknown Rx Apixaban [Eliquis] 10 mg PO BID 3 Days tablet 08/21/16 Unknown Rx Doxycycline [Vibramycin CAP] 100 mg PO Q12HR #14 capsule 09/01/17 Unknown Rx Oseltamivir [Tamiflu] 75 mg PO BID #10 cap 09/01/17 Unknown Rx guaiFENesin/CODEINE [Robitussin AC] 5 ml PO QID #120 oral.liqd 09/01/17 Unknown Rx ED Physical Exam - General Limitations: No Limitations General appearance: alert, in no apparent distress, anxious - Head Head exam: Present: atraumatic, normocephalic - Eye Eye exam: Present: normal appearance, PERRL, EOMI - ENT ENT exam: Present: mucous membranes moist, other (pharyngeal erythema no stridor or drooling no exudate or mass) - Neck Neck exam: Absent: tenderness, meningismus - Respiratory Respiratory exam: Present: normal lung sounds bilaterally. Absent: respiratory distress, wheezes, rales, rhonchi, stridor, chest wall tenderness, accessory muscle use, prolonged expiratory - Cardiovascular Cardiovascular Exam: Present: regular rate, normal rhythm, normal heart sounds. Absent: bradycardia, tachycardia, irregular rhythm, systolic murmur, diastolic murmur, rubs, gallop - GI/Abdominal GI/Abdominal exam: Present: soft. Absent: tenderness, guarding, rebound, rigid , mass, pulsatile mass - Back Exam Back exam: Present: normal inspection. Absent: CVA tenderness (L), muscle spasm , paraspinal tenderness, vertebral tenderness - Neurological Exam Neurological exam: Present: alert, oriented X3, CN II-XII intact. Absent: motor sensory deficit ED Course Vital Signs 08/31/17 11:54 Temperature 97.9 F Pulse Rate 94 H Respiratory 16 Rate Blood Pressure 140/76 O2 Sat by Pulse 96 Oximetry ED Medical Decision Making - Lab Data Result diagrams: 08/31/17 16:17 08/31/17 16:17 - Radiology Data Radiology results: report reviewed - Medical Decision Making Chest x-ray is negative symptoms are consistent with sinusitis and bronchitis with possible flu exposure however patient did have flu shot. He has no chest pain as shortness of breath he has no calf pain or swelling he is currently under treatment for his other problems including osteomyelitis peripheral vascular disease and DVT and he will follow with his regular doctor for those. Vital signs were stable he was otherwise unremarkable evaluation laboratory and chest x-ray is neg her first for outpatient follow-up Critical care attestation.: If time is entered above; I have spent that time in minutes in the direct care of this critically ill patient, excluding procedure time. ED Disposition Clinical Impression: Uncontrolled diabetes mellitus, Flu-like symptoms, Bronchitis, Sinusitis Disposition: DC-01 TO HOME OR SELFCARE Is pt being admited?: No Condition: Stable Instructions: Diabetes Mellitus Type 2 in Adults (ED), Chronic Bronchitis (ED) , Sinusitis (ED) Additional Instructions: Return immediately if new or alarming symptoms or call 911 see her regular doctor in 2 days Prescriptions: Doxycycline [Vibramycin CAP] 100 mg PO Q12HR #14 capsule guaiFENesin/CODEINE [Robitussin AC] 5 ml PO QID #120 oral.liqd Oseltamivir [Tamiflu] 75 mg PO BID #10 cap Referrals: PRIMARY CARE, [Primary Care Provider] - 3-5 Days Time of Disposition: 02:04
[2017-09-01] MEDS ORDERED: MOTRIN PO ONE ×2 (02:20→02:40)
[2017-09-01 02:46] VITALS: BP 167/87
[2017-09-01 02:46] LABS: Bilirubin,Urine NEG (Negative); Blood,Urine SM (Negative); Color,Urine Yellow (Yellow); Hyaline Casts,Urine 1 /LPF; Nitrite,Urine NEG (Negative); Urobilinogen,Urine < 2.0 mg/dL (<2.0)
== END 2017-09-01 02:47 | disposition home or self-care (01) ==
LOC: ED 11:45
DX: J40 Bronchitis, not specified as acute or chronic (principal); E11.9 Type 2 diabetes mellitus without complications; J32.9 Chronic sinusitis, unspecified; I82.409 Acute embolism and thrombosis of unspecified deep veins of unspecified lower extremity
CPT/HCPCS: 36415; 71046; 80053; 81001; 82550; 82805; 82962; 85025

== ENCOUNTER 2017-09-16 14:15 | Outpatient (CLI) | payer MEDICARE ==
[2017-09-16] MEDS ORDERED: XYLOCAINE TOPICAL 4% TP ONE ×2 (14:23→14:26)
== END 2017-09-16 14:16 | disposition home or self-care (01) ==
LOC: WOUND 14:15
PROVIDERS: ATTEND Surgery
DX: E11.621 Type 2 diabetes mellitus with foot ulcer (principal); L97.521 Non-pressure chronic ulcer of other part of left foot limited to breakdown of skin; E11.40 Type 2 diabetes mellitus with diabetic neuropathy, unspecified; B35.1 Tinea unguium; L84 Corns and callosities; I25.10 Atherosclerotic heart disease of native coronary artery without angina pectoris; E78.5 Hyperlipidemia, unspecified; E11.39 Type 2 diabetes mellitus with other diabetic ophthalmic complication; H40.9 Unspecified glaucoma; I10 Essential (primary) hypertension; Z86.718 Personal history of other venous thrombosis and embolism

== ENCOUNTER 2017-09-23 13:25 | Outpatient (CLI) | payer MEDICARE ==
[2017-09-23] MEDS ORDERED: XYLOCAINE TOPICAL 4% TP ONE ×2 (13:41→13:43)
== END 2017-09-23 13:26 | disposition home or self-care (01) ==
LOC: WOUND 13:25
PROVIDERS: ATTEND Surgery
DX: E11.621 Type 2 diabetes mellitus with foot ulcer (principal); L97.521 Non-pressure chronic ulcer of other part of left foot limited to breakdown of skin; E11.40 Type 2 diabetes mellitus with diabetic neuropathy, unspecified; L84 Corns and callosities; B35.1 Tinea unguium; I25.10 Atherosclerotic heart disease of native coronary artery without angina pectoris; I10 Essential (primary) hypertension; E78.5 Hyperlipidemia, unspecified; E11.39 Type 2 diabetes mellitus with other diabetic ophthalmic complication; H40.9 Unspecified glaucoma; Z86.718 Personal history of other venous thrombosis and embolism

== ENCOUNTER 2017-09-30 13:27 | Outpatient (CLI) | payer MEDICARE ==
[2017-09-30] MEDS ORDERED: XYLOCAINE TOPICAL 4% TP ONE ×2 (13:57→13:58)
== END 2017-09-30 13:28 | disposition home or self-care (01) ==
LOC: WOUND 13:27
PROVIDERS: ATTEND Surgery
DX: E11.621 Type 2 diabetes mellitus with foot ulcer (principal); L97.521 Non-pressure chronic ulcer of other part of left foot limited to breakdown of skin; E11.40 Type 2 diabetes mellitus with diabetic neuropathy, unspecified; I25.10 Atherosclerotic heart disease of native coronary artery without angina pectoris; E78.5 Hyperlipidemia, unspecified; B35.1 Tinea unguium; L84 Corns and callosities; Z86.718 Personal history of other venous thrombosis and embolism

== ENCOUNTER 2017-10-08 14:22 | Outpatient (CLI) | payer MEDICARE | END 2017-10-08 14:23 | disposition home or self-care (01) | LOC: WOUND 14:22 | PROVIDERS: ATTEND Surgery | DX: E11.621 Type 2 diabetes mellitus with foot ulcer (principal); L97.521 Non-pressure chronic ulcer of other part of left foot limited to breakdown of skin; E11.40 Type 2 diabetes mellitus with diabetic neuropathy, unspecified; I25.10 Atherosclerotic heart disease of native coronary artery without angina pectoris; E78.5 Hyperlipidemia, unspecified; E11.39 Type 2 diabetes mellitus with other diabetic ophthalmic complication; H40.9 Unspecified glaucoma; I10 Essential (primary) hypertension; Z86.718 Personal history of other venous thrombosis and embolism | CPT/HCPCS: 99213; G0463 ==

== ENCOUNTER 2017-10-21 17:25 | Emergency (ER) | payer MEDICARE ==
[2017-10-21 18:10] VITALS: BP 160/90
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
--- NOTE | 2017-10-21 20:46 | Cat Scan Report ---
FINAL REPORT PROCEDURE: CT FACIAL BONES WO CON TECHNIQUE: Computerized tomography of the facial bones and soft tissues with axial and coronal sections performed from the cranial aspect of the frontal sinuses to the caudal portion of the mandible without contrast material. HISTORY: injury COMPARISON: No prior studies are available for comparison. FINDINGS: Bones: No significant abnormality. Paranasal sinuses: There is mucosal thickening in the maxillary sinuses. There fluid in left maxillary sinus. There is a 4 centimeter polyp or retention cyst in the left maxillary sinus.. Soft tissues: No significant abnormality. Other: None. IMPRESSION: No acute bony abnormality is identified.
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
== END 2017-10-21 22:04 | disposition home or self-care (01) ==
LOC: ED 17:25
DX: S00.83XA Contusion of other part of head, initial encounter (principal); H11.31 Conjunctival hemorrhage, right eye; I10 Essential (primary) hypertension; E11.40 Type 2 diabetes mellitus with diabetic neuropathy, unspecified; Z86.718 Personal history of other venous thrombosis and embolism; Z79.01 Long term (current) use of anticoagulants; Y04.2XXA Assault by strike against or bumped into by another person, initial encounter; Y93.89 Activity, other specified; Y99.8 Other external cause status; Y92.524 Gas station as the place of occurrence of the external cause
CPT/HCPCS: 70450; 70486

== ENCOUNTER 2017-12-10 18:59 | Emergency (ER) | payer MEDICARE ==
--- NOTE | 2017-12-10 21:17 | XRay Report ---
FINAL REPORT EXAM: XR CHEST ROUTINE 2V HISTORY: chest pain, cough, SOB TECHNIQUE: Two views of the chest Comparison: 08/31/2017 FINDINGS: Heart size is normal. There is mild left ventricular configuration suggestive of systemic hypertension. There is multilevel mild marginal spondylitic thoracic change. Left hemidiaphragm is blunted laterally chronically compatible with scar. No infiltrate or effusion identified. IMPRESSION: No acute cardiopulmonary disease. Left ventricular configuration of the heart may suggest systemic hypertension. Chronically scarred left lateral diaphragm.
[2017-12-10] MEDS ORDERED: PEPCID PO ONE (21:48)
[2017-12-10] MEDS ORDERED: ULTRAM PO ONE (21:48)
--- NOTE | 2017-12-10 21:52 | Emergency Department Report ---
Blank Doc - Documentation Documentation: Patient is a 72-year-old gentleman who is presenting with one full day of chest and back pain. Patient states he started having pain in the upper mid back this morning does radiate into the chest. States the pain is so bad is taking his breath away and feels short of breath. Patient states there is no pleuritic pain associated. Patient denies any cough congestion sore throat and fever at this time. Patient states it is slightly better now than it was this morning. Patient's chest x-ray is negative for any acute abnormality. Tropon basic labs including BNP and d-dimer be ordered to rule out emergent causes for the patient 's discomfort.
[2017-12-10 22:07] LABS: Basophils # (Auto) 0.1 K/mm3 (0.0-0.1); Basophils % (Auto) 1.2 % (0.0-1.8); Eosinophils # (Auto) 0.1 K/mm3 (0.0-0.4); Eosinophils % (Auto) 1.6 % (0.0-4.3); Hematocrit 34.8 % (35.5-45.6); Hemoglobin 11.2 gm/dl (11.8-15.2); Lymphocytes # (Auto) 1.5 K/mm3 (1.2-5.4); Lymphocytes % (Auto) 34.5 % (13.4-35.0); Mean Corpuscular HGB Conc 32 % (32-34); Mean Corpuscular Hemoglobin 29 pg (28-32); Mean Corpuscular Volume 89 fl (84-94); Monocytes # (Auto) 0.5 K/mm3 (0.0-0.8); Monocytes % (Auto) 11.7 % (0.0-7.3); Platelet Count 152 K/mm3 (140-440); Red Blood Count 3.91 M/mm3 (3.65-5.03); Red Cell Distribution Width 12.2 % (13.2-15.2)
[2017-12-10 22:22] LABS: BUN/Creatinine Ratio 14; Blood Urea Nitrogen 26 mg/dL (9-20); Calcium 8.8 mg/dL (8.4-10.2); Hemolysis Index 0
--- NOTE | 2017-12-10 22:35 | Emergency Department Report ---
HPI - General Chief Complaint: Medical Clearance Time Seen by Provider: 12/10/17 21:40 - HPI HPI: Patient is a 72-year-old gentleman who is presenting with one full day of chest and back pain. Patient states he started having pain in the upper mid back this morning does radiate into the chest. States the pain is so bad is taking his breath away and feels short of breath. Patient states there is no pleuritic pain associated. Patient denies any cough congestion sore throat and fever at this time. Patient states it is slightly better now than it was this morning. He denies fever assess chills/nausea or vomiting/abdominal pain. He denies any trauma, fall or injuries. ED Past Medical Hx - Past Medical History Hx Hypertension: Yes Hx CVA: No Hx Heart Attack/AMI: No Hx Congestive Heart Failure: No Hx Diabetes: Yes Hx Deep Vein Thrombosis: Yes Hx Pulmonary Embolism: No Hx GERD: No Hx Liver Disease: No Hx Renal Disease: Yes Hx Sickle Cell Disease: No Hx Arthritis: Yes Hx Headaches / Migraines: No Hx Seizures: No Hx Kidney Stones: No Hx Psychiatric Treatment: No Hx Asthma: No Hx COPD: No Hx Tuberculosis: No Hx Dementia: No Hx HIV: No Additional medical history: Diabetic neuropathy. Currently taking Xarelto for previous DVT. - Surgical History Hx Coronary Stent: No Hx Open Heart Surgery: No Hx Pacemaker: No Hx Internal Defibrillator: No Hx Cholecystectomy: No Hx Appendectomy: No Hx Breast Surgery: No Additional Surgical History: "RIGHT FOOT SURGERY" - Social History Smoking Status: Never Smoker Substance Use Type: None - Medications Home Medications: Home Medications Medication Instructions Recorded Confirmed Last Taken Type Tramadol HCl [Ultram ER] 100 mg PO QID PRN 06/01/13 08/15/16 1 Day Ago History ~02/28/16 100 Travoprost [Travatan Z] 1 drop OP BID 11/05/15 08/15/16 08/14/16 History Insulin Lispro Prot/Lispro 15 - 18 units SC BID #1 bottle 11/11/15 08/15/16 1 Day Ago Rx [HumaLOG Mix 75/25 Vial] ~02/28/16 15 Carvedilol [Coreg] 25 mg PO BID #60 tablet 03/04/16 08/15/16 08/14/16 Rx Gabapentin [Neurontin] 300 mg PO QDAY #30 capsule 03/04/16 08/15/16 Unknown Rx Simvastatin [Zocor TAB] 20 mg PO QHS #30 tablet 03/04/16 08/15/16 Unknown Rx Tamsulosin [Flomax] 0.4 mg PO QHS #30 03/04/16 08/15/16 1 Day Ago Rx ~02/28/16 0.4 amLODIPine [Norvasc] 5 mg PO DAILY #30 tab 03/04/16 08/15/16 Unknown Rx Apixaban [Eliquis] 5 mg PO BID #60 tablet 08/21/16 Unknown Rx Apixaban [Eliquis] 10 mg PO BID 3 Days tablet 08/21/16 Unknown Rx Doxycycline [Vibramycin CAP] 100 mg PO Q12HR #14 capsule 09/01/17 Unknown Rx Oseltamivir [Tamiflu] 75 mg PO BID #10 cap 09/01/17 Unknown Rx guaiFENesin/CODEINE [Robitussin AC] 5 ml PO QID #120 oral.liqd 09/01/17 Unknown Rx Neomy/Polymyx B/Hc Opth Susp 1 drop OS Q6HR #1 bottle 10/21/17 Unknown Rx [Cortisporin (OPTH) Susp] traMADol [Ultram 50 MG tab] 50 mg PO Q6HR PRN #12 tablet 12/10/17 Unknown Rx ED Review of Systems ROS: Stated complaint: C/O OF PNEUMONIA/CHEST/BACK PAIN/FATIGUE Other details as noted in HPI Constitutional: denies: chills, fever Eyes: denies: eye pain, eye discharge, vision change ENT: denies: ear pain, throat pain Respiratory: denies: cough, shortness of breath, wheezing Cardiovascular: denies: chest pain, palpitations Endocrine: no symptoms reported Gastrointestinal: denies: abdominal pain, nausea, diarrhea Genitourinary: denies: urgency, dysuria Musculoskeletal: back pain. denies: joint swelling, arthralgia Skin: denies: rash, lesions Neurological: denies: headache, weakness, paresthesias Psychiatric: denies: anxiety, depression Hematological/Lymphatic: denies: easy bleeding, easy bruising Physical Exam - Physical Exam Vital Signs: Vital Signs 12/10/17 12/10/17 19:21 22:02 Temperature 97.8 F Pulse Rate 64 Respiratory 16 16 Rate Blood Pressure 176/93 O2 Sat by Pulse 100 Oximetry Physical Exam: GENERAL: Alert and oriented x3, no apparent distress, Normal Gait, atraumatic. HEAD: Head is normocephalic and a-traumatic. NECK: Supple. Non edematous, No lymphadenopathy or thyromegaly. No C-spine tenderness, full range of motion LUNGS: Symetrical with respiration, No wheezing, no rales or crackles, CTAB. HEART: S1, S2 present, regular rate and rhythm without murmur, no rubs, no gallops. Non tender to palpation BACK: Full range of motion, no spinal tenderness, EXTREMITIES/MUSCULOSKELETAL: No cyanosis, clubbing, rash, lesions or edema. Full ROM bilaterally. UE/LE Pulses 2+ bilaterally. LE and UE 5+ strength bilaterally, NEUROLOGIC: The patient is cooperative with no focal neurologic deficits. SKIN: Warm and dry, No lesions, No ulceration or induration present. ED Course Vital Signs 12/10/17 12/10/17 19:21 22:02 Temperature 97.8 F Pulse Rate 64 Respiratory 16 16 Rate Blood Pressure 176/93 O2 Sat by Pulse 100 Oximetry ED Medical Decision Making - Lab Data Result diagrams: 12/10/17 21:56 12/10/17 21:56 Laboratory Last Values WBC 4.4 K/mm3 (4.5-11.0) L 12/10/17 21:56 RBC 3.91 M/mm3 (3.65-5.03) 12/10/17 21:56 Hgb 11.2 gm/dl (11.8-15.2) L 12/10/17 21:56 Hct 34.8 % (35.5-45.6) L 12/10/17 21:56 MCV 89 fl (84-94) 12/10/17 21:56 MCH 29 pg (28-32) 12/10/17 21:56 MCHC 32 % (32-34) 12/10/17 21:56 RDW 12.2 % (13.2-15.2) L 12/10/17 21:56 Plt Count 152 K/mm3 (140-440) 12/10/17 21:56 Lymph % (Auto) 34.5 % (13.4-35.0) 12/10/17 21:56 [place] % (Auto) 11.7 % (0.0-7.3) H 12/10/17 21:56 Eos % (Auto) 1.6 % (0.0-4.3) 12/10/17 21:56 Baso % (Auto) 1.2 % (0.0-1.8) 12/10/17 21:56 Lymph # 1.5 K/mm3 (1.2-5.4) 12/10/17 21:56 [place] # 0.5 K/mm3 (0.0-0.8) 12/10/17 21:56 Eos # 0.1 K/mm3 (0.0-0.4) 12/10/17 21:56 Baso # 0.1 K/mm3 (0.0-0.1) 12/10/17 21:56 Seg Neutrophils % 51.0 % (40.0-70.0) 12/10/17 21:56 Seg Neutrophils # 2.3 K/mm3 (1.8-7.7) 12/10/17 21:56 D-Dimer < 135.00 ng/mlDDU (0-234) 12/10/17 21:56 Sodium 138 mmol/L (137-145) 12/10/17 21:56 Potassium 3.8 mmol/L (3.6-5.0) 12/10/17 21:56 Chloride 98.8 mmol/L (98-107) 12/10/17 21:56 Carbon Dioxide 26 mmol/L (22-30) 12/10/17 21:56 Anion Gap 17 mmol/L 12/10/17 21:56 BUN 26 mg/dL (9-20) H 12/10/17 21:56 Creatinine 1.9 mg/dL (0.8-1.5) H 12/10/17 21:56 Estimated GFR 42 ml/min 12/10/17 21:56 BUN/Creatinine Ratio 14 % 12/10/17 21:56 Glucose 306 mg/dL (75-100) H 12/10/17 21:56 Calcium 8.8 mg/dL (8.4-10.2) 12/10/17 21:56 Troponin T < 0.010 ng/mL (0.00-0.029) 12/10/17 21:56 NT-Pro-B Natriuret Pep 328.4 pg/mL (0-900) 12/10/17 21:56 - EKG Data Rate: normal - EKG Data Interpretation: no acute changes - Radiology Data Radiology results: report reviewed, image reviewed FINAL REPORT EXAM: XR CHEST ROUTINE 2V HISTORY: chest pain, cough, SOB TECHNIQUE: Two views of the chest Comparison: 08/31/2017 FINDINGS: Heart size is normal. There is mild left ventricular configuration suggestive of systemic hypertension. There is multilevel mild marginal spondylitic thoracic change. Left hemidiaphragm is blunted laterally chronically compatible with scar. No infiltrate or effusion identified. IMPRESSION: No acute cardiopulmonary disease. Left ventricular configuration of the heart may suggest systemic hypertension. Chronically scarred left lateral diaphragm. Transcribed By: ROBERTA Dictated By: JENSEN MEDRANO Electronically Authenticated By: JENSEN MEDRANO Signed Date/Time: 12/10/172112 - Medical Decision Making 72-year-old male presents with muscle back pain. ED course: CBC, BMP troponins, d-dimer and BMP ordered. All labs within normal limits Chest x-ray shows no acute findings. Patient was so he does not pneumonia or any heart-related conditions at the moment. Vital signs are normal patient is in no acute distress. He understands instructions given. Discussed the patient have any worsening symptoms return to ED immediately. Patient had elevated blood pressures in the ED but asymptomatic. Patient has a history of high blood pressure and takes medication. Patient states he hasn't taken his medication today. Advised patient to take his Blood pressure medication as soon as he gets home .patient states he will take his distress and a progress and as he gets home. Patient had no chest pain, shortness of rib or vision or headache in the ED Patient will be discharged home. Critical care attestation.: If time is entered above; I have spent that time in minutes in the direct care of this critically ill patient, excluding procedure time. ED Disposition Clinical Impression: Myalgia Back pain Qualifiers: Back pain location: thoracic back pain Chronicity: unspecified Disposition: DC-01 TO HOME OR SELFCARE Is pt being admited?: No Does the pt Need Aspirin: No Condition: Stable Instructions: Musculoskeletal Pain (ED), Arthralgia (ED), Back Pain (ED), Heat Pack Application (ED) Additional Instructions: you do not have pneumonia or heart attack Pain is most likely from muscle pain Make sure to follow up with the primary care physician as discussed. Take all your medications as you've been prescribed. If you have any worsening symptoms or develop new symptoms please return to ED immediately. Prescriptions: traMADol [Ultram 50 MG tab] 50 mg PO Q6HR PRN #12 tablet PRN Reason: Pain Referrals: TORIE ARREDONDO MD [Primary Care Provider] - 3-5 Days [facility] [Outside] - 3-5 Days [facility] [Outside] - 3-5 Days Forms: Accompanied Note, Work/School Release Form(ED) Time of Disposition: 22:51
[2017-12-10 23:39] VITALS: BP 203/103
== END 2017-12-10 23:39 | disposition home or self-care (01) ==
LOC: ED 18:59
DX: M54.9 Dorsalgia, unspecified (principal); M79.1 Myalgia; I10 Essential (primary) hypertension; E11.40 Type 2 diabetes mellitus with diabetic neuropathy, unspecified; M19.90 Unspecified osteoarthritis, unspecified site; Z79.4 Long term (current) use of insulin
CPT/HCPCS: 36415; 71046; 80048; 83880; 84484; 85025; 85379; 93005; 93010; 99284